=== PATIENT | male | born 1955 | race Caucasian/White ===

== ENCOUNTER 2018-02-06 11:11 | Emergency (ER) | payer OTHER, MEDICAID, SELFPAY ==
[2018-02-06] VITALS (9 sets, daily range): BP systolic 139–195; BP diastolic 58–80; PULSE 49–75; RESP 11–64; TEMP 36.5; O2SAT 99–100; BMI 25.2
--- NOTE | 2018-02-06 11:14 | ED.CHESTPAIN ---
HPI - Chest Pain General Chief Complaint: Chest Pain Stated Complaint: Chest Pain Time Seen by Provider: 02/06/18 11:12 Source: patient Mode of arrival: EMS Limitations: no limitations History of Present Illness HPI narrative: 62-year-old male with a history of coronary artery disease and history of 2 heart attacks last 1 being earlier this year is currently at a rehab facility in the local area secondary to also having CVA after the last DC. Patient with residual weakness of bilateral upper extremities. Patient states that last evening he had left-sided chest pain took a couple nitro which resolved the symptoms. He states that this morning he was walking out to smoke a cigarette when he had return of the pain. Took more nitro which improved his symptoms greatly. EMS was called. Denies any shortness of breath. Patient was given aspirin by paramedics prior to arrival. Related Data Home Medications Medication Instructions Recorded Confirmed Nicotrol Inhaler 4 mg INHALATION Q2H PRN MDD 16 02/06/18 02/06/18 cartridges acetaminophen 650 mg PO PRN PRN 02/06/18 02/06/18 ammonium lactate 1 applic TOPICAL DAILY 02/06/18 02/06/18 aspirin 81 mg PO DAILY 02/06/18 02/06/18 atorvastatin 40 mg PO DAILY 02/06/18 02/06/18 buspirone 10 mg PO BID 02/06/18 02/06/18 clopidogrel [Plavix] 75 mg PO DAILY 02/06/18 02/06/18 gabapentin 100 mg PO BID 02/06/18 02/06/18 lisinopril 5 mg PO DAILY 02/06/18 02/06/18 metoprolol succinate 25 mg PO DAILY 02/06/18 02/06/18 nitroglycerin [Nitrostat] 1 tab SUBLINGUAL PRN PRN 02/06/18 02/06/18 polyethylene glycol 3350 [Miralax] 17 g PO DAILY 02/06/18 02/06/18 ranitidine HCl 300 mg PO DAILY 02/06/18 02/06/18 sennosides [senna] 1 tab PO BID 02/06/18 02/06/18 sitagliptin 50 mg PO DAILY 02/06/18 02/06/18 trazodone 50 mg PO BEDTIME 02/06/18 02/06/18 Allergies Allergy/AdvReac Type Severity Reaction Status Date / Time No Known Drug Allergies Allergy Verified 02/06/18 11:33 Review of Systems Constitutional Denies chills, Denies fatigue and Denies frequent falls ENT Ears, Nose, Mouth, and Throat: Denies vertigo and Denies dizziness Cardiovascular Reports chest pain, Denies edema, Denies palpitations and Denies dyspnea Respiratory Denies cough and Denies dyspnea Gastrointestinal Gastrointestinal: Denies abdominal pain, Denies nausea and Denies vomiting Genitourinary Denies dysuria Musculoskeletal Denies myalgias and Denies arthralgias Integumentary/Breasts Denies lesions and Denies rash Neurologic Denies vertigo, Denies dizziness and Denies frequent falls Endocrine Denies fatigue and Denies palpitations Hematologic/Lymphatic Denies easy bleeding and Denies easy bruising [facility] Medical History Coronary artery disease (Acute) Diabetes (Acute) Hyperlipidemia (Acute) Hypertension (Acute) Surgical History No pertinent past surgical history (Acute) Social History Smoking Status: Current every day smoker Exam Initial Vital Signs Initial Vital Signs: Vital Signs Temperature 97.7 F 02/06/18 11:21 Pulse Rate 63 02/06/18 11:21 Respiratory Rate 15 02/06/18 11:21 Blood Pressure 156/62 H 02/06/18 11:21 Pulse Oximetry 100 02/06/18 11:21 Const General: cooperative, healthy appearing, comfortable, well developed, well groomed and No acute distress Orientation: alert, awake and oriented x3 HENMT Head: normal to inspection and normocephalic Resp Effort & Inspection: normal respiratory effort Auscultation: clear to auscultation bilaterally Cardio Rate: regular rate Rhythm: regular rhythm Pulses: radial pulses present GI Inspection: normal to inspection and non-distended Palpation: No firm and No tender Skin Lesions: no lesions Rashes: no rashes Neuro General: alert, awake and oriented x3 Extrem General: normal to inspection, capillary refill normal and No edema Psych Appearance: grossly normal and well kempt Course Orders Ordered: ED Orders 02/06/18 11:13 XR chest 1V Stat EKG-12 Lead Stat 02/06/18 11:39 Complete Blood Count AUTO DIFF Stat Comprehensive Metabolic Panel Stat Lipase Stat Troponin I Stat 02/06/18 14:45 Troponin I Stat Vital Signs - 8 hr 02/06/18 11:21 02/06/18 11:31 02/06/18 12:07 Temperature 97.7 F Pulse Rate 63 62 Respiratory Rate 15 15 14 Blood Pressure 156/62 H Blood Pressure [Left Arm] 139/58 L 174/61 H Pulse Oximetry 100 100 02/06/18 12:35 02/06/18 13:08 02/06/18 13:30 Temperature Pulse Rate 66 49 L 51 L Respiratory Rate 13 11 L Blood Pressure Blood Pressure [Left Arm] 180/66 H 181/71 H 179/61 H Pulse Oximetry 100 100 100 MDM - Chest Pain Lab Data Attestation: I reviewed the patient's lab results. Result diagrams: 02/06/18 11:39 02/06/18 11:39 Lab Results 02/06/18 02/06/18 02/06/18 Range/Units 11:39 11:39 14:45 WBC 6.5 (4.5-11.0) X10^3/uL RBC 4.75 (4.5-5.9) X10^6/uL Hgb 13.9 (13.5-17.5) g/dL Hct 40.4 L (41-53) % MCV 85.0 (80-100) fL MCH 29.3 (26-34) PG MCHC 34.4 (30-36) % RDW 14.1 (11.6-14.8) % Plt Count 154 (150-400) X10^3/uL Neut % (Auto) 67.9 (50-75) % Lymph % (Auto) 22.0 L (25-40) % [place] % (Auto) 6.3 (3-14) % Eos % (Auto) 3.4 (2-4) % Baso % (Auto) 0.4 (0-2) % Neut # (Auto) 4400 (8398-0432) /uL Sodium 142 (137-145) mmol/L Potassium 4.2 (3.4-5.1) mmol/L Chloride 102 (98-107) mmol/L Carbon Dioxide 33 H (22-32) mmol/L BUN 12 (9-20) mg/dL Creatinine 0.80 (0.66-1.25) mg/dL Estimated GFR > 60.0 (>60) mL/min BUN/Creatinine Ratio 15.0 (6-22) Glucose 219 H (80-110) mg/dL Calcium 8.7 (8.4-10.2) mg/dL Total Bilirubin 0.4 (0.2-1.3) mg/dL AST 11 L (17-59) IU/L ALT 23 (21-72) IU/L Alkaline Phosphatase 58 (38-126) U/L Troponin I < 0.012 < 0.012 (0.01-0.034) ng/mL Total Protein 6.1 L (6.3-8.2) g/dL Albumin 3.7 (3.5-5.0) g/dL Globulin 2.4 (1.7-4.1) g/dL Albumin/Globulin Ratio 1.5 (1.0-2.8) Lipase 124 (23-300) U/L Imaging Data Chest x-ray: Radiologist's impression: PROCEDURE: XR CHEST 1V INDICATIONS: chest pain TECHNIQUE: One view of the chest was acquired. COMPARISON: None. FINDINGS: Surgical changes and devices: None. Lungs and pleura: No pleural effusions or pneumothorax. Lungs are clear. Mediastinum: Mediastinal contours appear normal. Heart size is normal. Bones and chest wall: No suspicious bony lesions. Overlying soft tissues appear unremarkable. IMPRESSION: Normal for age, source of current symptoms is not seen. Dictated by: Jesse Joseph M.D. on 02/06/2018 at 11:56 Approved by: Jesse Joseph M.D. on 02/06/2018 at 11:5 ECG Data Attestation: I personally reviewed and interpreted this ECG as follows: Prior ECG tracings: not available for review Interpretation: sinus bradycardia ventricular rate of 56 normal axis Normal intervals Normal QRS Nonspecific ST T wave changes MDM Narrative Medical decision making narrative: patient with 2- troponins. Nonischemic EKG. Given the patient's significant cardiac history in his symptoms I did tell him that I was concerned about his chest pain that he was having and whether not this was ischemia / heart attack. recommend that the patient be transferred back up to [facility] where he had his last cardiac catheterization to be admitted evaluated by the recreation facility attendant. The patient states that he did not want to be transferred. He did state that he would stay here in the ER for repeat troponin which was unremarkable. Patient was alert oriented x3, clinically sober, in my opinion had capacity to make decisions. He did express understanding of my concerns with regard to his chest pain. He expressed understanding that the symptoms that he was having today could potentially be ischemia which could lead to further problems and also heart attack and also . The patient stated that he understood this and still would like to be discharged home and not be transferred. I once again offered the transfer however he declined. The patient was informed that he could return to the emergency department at any time for continued evaluation if he so choose. He expressed agreement with this. Discharge Plan Departure Patient Disposition: Home Clinical Impression: Chest pain Instructions: DI for Chest Pain Activity Restrictions/Additional Instructions: after our discussion today and after I expressed my concerns that the pain that you are having could potentially be coming from the heart you still opted to be discharged from the emergency department and not be transferred. You may return to the emergency department at any time if you change of mind. I encourage you to call your primary doctor and also your recreation facility attendant for a follow-up. Continue all of your medications as directed. Prescriptions: No Action atorvastatin 40 mg Tablet 40 mg PO DAILY RF: 0 sennosides [senna] 8.6 mg Tablet 1 tab PO BID RF: 0 acetaminophen 325 mg Tablet 650 mg PO PRN PRN (Reason: pain/fever) RF: 0 trazodone 50 mg Tablet 50 mg PO BEDTIME RF: 0 polyethylene glycol 3350 [Miralax] 17 gram Powder In Packet 17 g PO DAILY RF: 0 clopidogrel [Plavix] 75 mg Tablet 75 mg PO DAILY RF: 0 aspirin 81 mg Tablet,Delayed Release (Dr/Ec) 81 mg PO DAILY RF: 0 ranitidine HCl 150 mg Tablet 300 mg PO DAILY RF: 0 buspirone 10 mg Tablet 10 mg PO BID RF: 0 nitroglycerin [Nitrostat] 0.4 mg Tablet, Sublingual 1 tab Sublingual PRN PRN (Reason: Chest Pain) RF: 0 ammonium lactate 12 % Cream 1 applic TOPICAL DAILY RF: 0 gabapentin 100 mg Capsule 100 mg PO BID RF: 0 metoprolol succinate 25 mg Tablet Extended Release 24 Hr 25 mg PO DAILY RF: 0 lisinopril 2.5 mg Tablet 5 mg PO DAILY RF: 0 sitagliptin 50 mg Tablet 50 mg PO DAILY RF: 0 Nicotrol Inhaler 4 mg 4 mg Inhalation Q2H MDD 16 cartridges PRN (Reason: smoking cessation) RF: 0
--- NOTE | 2018-02-06 11:32 | PC.NURSE ---
Patient had a recent stroke this year around june or July. States he has right-sided deficits. [employer] on the right are slightly weaker than the left side. Pt states this is baseline. No arm drift. Speech is at baseline, per patient. He lives at [facility] and requires assistance with ambulation, transferring, etc due to the stroke deficits.
[2018-02-06 11:48] LABS: Add Manual Diff / Slide Review NO; Basophils Percent Auto 0.4 % (0-2); Eosinophils Percent Auto 3.4 % (2-4); Hematocrit 40.4 % (41-53); Hemoglobin 13.9 g/dL (13.5-17.5); Mean Corpuscular HGB Conc 34.4 % (30-36); Mean Corpuscular Hemoglobin 29.3 PG (26-34); Monocytes Percent Auto 6.3 % (3-14); Neutrophils Absolute Auto 4400 /uL (3000-5900); Neutrophils Percent Auto 67.9 % (50-75); Platelet Count 154 X10^3/uL (150-400); Red Blood Cell Count 4.75 X10^6/uL (4.5-5.9); Red Cell Distribution Width 14.1 % (11.6-14.8); White Blood Cell Count 6.5 X10^3/uL (4.5-11.0)
[2018-02-06 12:05] LABS: Alanine Aminotransferase 23 IU/L (21-72); Albumin 3.7 g/dL (3.5-5.0); Albumin Globulin Ratio 1.5 (1.0-2.8); Alkaline Phosphatase 58 U/L (38-126); Aspartate Aminotransferase 11 IU/L (17-59); Bilirubin Total 0.4 mg/dL (0.2-1.3); Blood Urea Nitrogen 12 mg/dL (9-20); Calcium 8.7 mg/dL (8.4-10.2); Carbon Dioxide 33 mmol/L (22-32); Chloride 102 mmol/L (98-107); Estimated Glomerular Filt Rate > 60.0 mL/min (>60); Globulin 2.4 g/dL (1.7-4.1); Glucose 219 mg/dL (80-110); HEMOLYSIS < 15 (0-50); Lipase 124 U/L (23-300); Potassium 4.2 mmol/L (3.4-5.1); Sodium 142 mmol/L (137-145); Total Protein 6.1 g/dL (6.3-8.2)
[2018-02-06 12:17] LABS: Troponin I < 0.012 ng/mL (0.01-0.034)
[2018-02-06 15:35] LABS: Troponin I < 0.012 ng/mL (0.01-0.034)
== END 2018-02-06 16:12 | disposition home or self-care (01) ==
PROVIDERS: Emergency Provider Emergency Medicine; PCP Internal Medicine
DX: R07.89 Other chest pain (principal)
CPT/HCPCS: 36415; 71045; 80053; 83690; 84484; 85025; 93005; 93010; 99283; 99285

== ENCOUNTER → 2018-02-16 07:16 | Outpatient (REF) | payer OTHER, MEDICAID, SELFPAY ==
[2018-02-16 07:47] LABS: BUN Creatinine Ratio 13.3 (6-22); Blood Urea Nitrogen 12 mg/dL (9-20); Calcium 8.8 mg/dL (8.4-10.2); Carbon Dioxide 35 mmol/L (22-32); Chloride 101 mmol/L (98-107); Estimated Glomerular Filt Rate > 60.0 mL/min (>60); Glucose 182 mg/dL (80-110); HEMOLYSIS < 15 (0-50); Potassium 4.5 mmol/L (3.4-5.1); Sodium 142 mmol/L (137-145)
== END ==
LOC: LAB 07:16
PROVIDERS: PCP Internal Medicine; Visit Provider Internal Medicine
DX: I10 Essential (primary) hypertension (principal)
CPT/HCPCS: 36415; 80048

== ENCOUNTER → 2018-03-30 08:20 | Outpatient (REF) | payer OTHER, MEDICAID, SELFPAY ==
[2018-03-30 09:11] LABS: Hemoglobin A1C% w Est Avg Glu 7.2 % (4.0-6.0)
[2018-03-30 09:35] LABS: BUN Creatinine Ratio 16.7 (6-22); Blood Urea Nitrogen 15 mg/dL (9-20); Calcium 8.9 mg/dL (8.4-10.2); Carbon Dioxide 31 mmol/L (22-32); Chloride 102 mmol/L (98-107); Estimated Glomerular Filt Rate > 60.0 mL/min (>60); Glucose 179 mg/dL (80-110); HEMOLYSIS < 15 (0-50); Potassium 4.5 mmol/L (3.4-5.1); Sodium 144 mmol/L (137-145)
== END ==
LOC: LAB 08:20
PROVIDERS: PCP Internal Medicine; Visit Provider Nurse Practitioner Family
DX: I10 Essential (primary) hypertension (principal); E11.9 Type 2 diabetes mellitus without complications
CPT/HCPCS: 36415; 80048; 83036

== ENCOUNTER → 2018-06-13 07:23 | Outpatient (REF) | payer OTHER, MEDICAID, SELFPAY ==
[2018-06-13 08:08] LABS: BUN Creatinine Ratio 14.4 (6-22); Blood Urea Nitrogen 13 mg/dL (9-20); Calcium 8.7 mg/dL (8.4-10.2); Carbon Dioxide 30 mmol/L (22-32); Chloride 100 mmol/L (98-107); Estimated Glomerular Filt Rate > 60.0 mL/min (>60); Glucose 170 mg/dL (80-110); HEMOLYSIS < 15 (0-50); Potassium 4.6 mmol/L (3.4-5.1); Sodium 138 mmol/L (137-145)
== END ==
LOC: LAB 07:23
PROVIDERS: PCP Internal Medicine; Visit Provider Internal Medicine
DX: I10 Essential (primary) hypertension (principal)
CPT/HCPCS: 36415; 80048

== ENCOUNTER → 2018-06-15 20:06 | Outpatient (REF) | payer OTHER, MEDICAID, SELFPAY ==
[2018-06-15 20:18] LABS: Add Manual Diff / Slide Review NO; Basophils Absolute Auto 0 /uL (0-100); Basophils Percent Auto 0.4 % (0-2); Eosinophils Absolute Auto 300 /uL (0-450); Hematocrit 43.2 % (41-53); Hemoglobin 14.5 g/dL (13.5-17.5); Lymphocytes Absolute Auto 2000 /uL (1100-4500); Lymphocytes Percent Auto 23.6 % (25-40); Mean Corpuscular HGB Conc 33.6 % (30-36); Mean Corpuscular Hemoglobin 28.7 PG (26-34); Mean Corpuscular Volume 85.3 fL (80-100); Monocytes Absolute Auto 600 /uL (0-900); Monocytes Percent Auto 7.5 % (3-14); Neutrophils Absolute Auto 5600 /uL (1500-7000); Neutrophils Percent Auto 65.5 % (50-75); Platelet Count 170 X10^3/uL (150-400); Red Blood Cell Count 5.07 X10^6/uL (4.5-5.9); Red Cell Distribution Width 13.8 % (11.6-14.8); White Blood Cell Count 8.5 X10^3/uL (4.5-11.0)
[2018-06-15 20:54] LABS: Thyroid Stimulating Hormone 1.42 uIU/mL (0.47-4.68)
== END ==
LOC: LAB 20:06
PROVIDERS: PCP Internal Medicine; Visit Provider Registered Nurse
DX: R53.83 Other fatigue (principal)
CPT/HCPCS: 84443; 85025

== ENCOUNTER → 2018-07-04 07:46 | Outpatient (REF) | payer OTHER, MEDICAID, SELFPAY ==
[2018-07-04 08:33] LABS: Add Manual Diff / Slide Review NO; Basophils Absolute Auto 0 /uL (0-100); Basophils Percent Auto 0.6 % (0-2); Eosinophils Absolute Auto 300 /uL (0-450); Eosinophils Percent Auto 3.7 % (2-4); Hematocrit 42.2 % (41-53); Hemoglobin 14.5 g/dL (13.5-17.5); Lymphocytes Absolute Auto 1900 /uL (1100-4500); Lymphocytes Percent Auto 28.5 % (25-40); Mean Corpuscular HGB Conc 34.4 % (30-36); Mean Corpuscular Hemoglobin 29.1 PG (26-34); Mean Corpuscular Volume 84.5 fL (80-100); Monocytes Absolute Auto 600 /uL (0-900); Monocytes Percent Auto 8.9 % (3-14); Neutrophils Absolute Auto 3900 /uL (1500-7000); Neutrophils Percent Auto 58.3 % (50-75); Platelet Count 182 X10^3/uL (150-400); Red Blood Cell Count 4.99 X10^6/uL (4.5-5.9); Red Cell Distribution Width 13.8 % (11.6-14.8); White Blood Cell Count 6.7 X10^3/uL (4.5-11.0)
[2018-07-04 08:45] LABS: Hemoglobin A1C% w Est Avg Glu 7.6 % (4.0-6.0)
[2018-07-04 09:13] LABS: Blood Urea Nitrogen 16 mg/dL (9-20); Calcium 8.8 mg/dL (8.4-10.2); Carbon Dioxide 30 mmol/L (22-32); Chloride 102 mmol/L (98-107); Estimated Glomerular Filt Rate > 60.0 mL/min (>60); Glucose 175 mg/dL (80-110); HEMOLYSIS < 15 (0-50); Potassium 4.7 mmol/L (3.4-5.1); Sodium 140 mmol/L (137-145)
== END ==
LOC: LAB 07:46
PROVIDERS: PCP Internal Medicine; Visit Provider Internal Medicine
DX: I10 Essential (primary) hypertension (principal)
CPT/HCPCS: 36415; 80048; 83036; 85025

== ENCOUNTER → 2018-11-14 07:11 | Outpatient (ROUT) | payer OTHER, MEDICAID, SELFPAY ==
[2018-11-14 08:32] LABS: BUN Creatinine Ratio 17.8 (6-22); Blood Urea Nitrogen 16 mg/dL (9-20); Calcium 9.1 mg/dL (8.4-10.2); Carbon Dioxide 30 mmol/L (22-32); Chloride 102 mmol/L (98-107); Estimated Glomerular Filt Rate > 60.0 mL/min (>60); Glucose 174 mg/dL (80-110); HEMOLYSIS < 15 (0-50); Potassium 5.3 mmol/L (3.4-5.1); Sodium 141 mmol/L (137-145)
== END ==
PROVIDERS: PCP Internal Medicine; Visit Provider Internal Medicine
DX: E11.9 Type 2 diabetes mellitus without complications (principal); M79.606 Pain in leg, unspecified
CPT/HCPCS: 36415; 80048; 83036

== ENCOUNTER → 2018-11-17 14:28 | Outpatient (ROUT) | payer OTHER, MEDICAID, SELFPAY ==
[2018-11-17 14:50] LABS: HEMOLYSIS < 15 (0-50); Potassium 4.3 mmol/L (3.4-5.1)
== END ==
PROVIDERS: PCP Internal Medicine; Visit Provider Internal Medicine
DX: E87.5 Hyperkalemia (principal)
CPT/HCPCS: 84132

== ENCOUNTER → 2019-02-13 07:38 | Outpatient (ROUT) | payer OTHER, MEDICAID, SELFPAY ==
[2019-02-13 08:39] LABS: Add Manual Diff / Slide Review NO; Basophils Absolute Auto 0 /uL (0-100); Basophils Percent Auto 0.4 % (0-2); Eosinophils Absolute Auto 300 /uL (0-450); Eosinophils Percent Auto 3.7 % (2-4); Hematocrit 43.6 % (41-53); Hemoglobin 14.9 g/dL (13.5-17.5); Lymphocytes Absolute Auto 1100 /uL (1100-4500); Lymphocytes Percent Auto 14.1 % (25-40); Mean Corpuscular HGB Conc 34.2 % (30-36); Mean Corpuscular Hemoglobin 30.5 PG (26-34); Mean Corpuscular Volume 89.3 fL (80-100); Monocytes Absolute Auto 600 /uL (0-900); Monocytes Percent Auto 8.4 % (3-14); Neutrophils Absolute Auto 5600 /uL (1500-7000); Neutrophils Percent Auto 73.4 % (50-75); Platelet Count 184 X10^3/uL (150-400); Red Blood Cell Count 4.88 X10^6/uL (4.5-5.9); Red Cell Distribution Width 13.7 % (11.6-14.8); White Blood Cell Count 7.6 X10^3/uL (4.5-11.0)
[2019-02-13 08:58] LABS: BUN Creatinine Ratio 14.4 (6-22); Blood Urea Nitrogen 13 mg/dL (9-20); Calcium 9.4 mg/dL (8.4-10.2); Carbon Dioxide 30 mmol/L (22-32); Chloride 100 mmol/L (98-107); Estimated Glomerular Filt Rate > 60.0 mL/min (>60); Glucose 189 mg/dL (80-110); HEMOLYSIS < 15 (0-50); Potassium 4.7 mmol/L (3.4-5.1); Sodium 137 mmol/L (137-145)
== END ==
PROVIDERS: PCP Internal Medicine; Visit Provider Nurse Practitioner Family
DX: E11.9 Type 2 diabetes mellitus without complications (principal)
CPT/HCPCS: 36415; 80048; 83036; 85025

== ENCOUNTER → 2019-04-29 21:26 | Outpatient (ROUT) | payer OTHER, MEDICAID, SELFPAY ==
[2019-04-29 22:01] LABS: Influenza B - CEPHEID Flu B POSITIVE (NEGATIVE)
[2019-04-29 22:11] LABS: Influenza A - CEPHEID Flu A NEGATIVE (NEGATIVE)
== END ==
PROVIDERS: PCP Internal Medicine; Visit Provider Nurse Practitioner Family
DX: R05 Cough (principal); R50.9 Fever, unspecified
CPT/HCPCS: 87502

== ENCOUNTER → 2019-05-01 10:08 | Outpatient (ROUT) | payer OTHER, MEDICAID, SELFPAY ==
[2019-05-01 10:29] LABS: Add Manual Diff / Slide Review NO; Basophils Absolute Auto 0 /uL (0-100); Basophils Percent Auto 0.8 % (0-2); Eosinophils Absolute Auto 0 /uL (0-450); Eosinophils Percent Auto 0.7 % (2-4); Hematocrit 38.2 % (41-53); Hemoglobin 13.1 g/dL (13.5-17.5); Lymphocytes Absolute Auto 700 /uL (1100-4500); Lymphocytes Percent Auto 21.6 % (25-40); Mean Corpuscular HGB Conc 34.4 % (30-36); Mean Corpuscular Volume 87.3 fL (80-100); Monocytes Absolute Auto 500 /uL (0-900); Monocytes Percent Auto 14.6 % (3-14); Neutrophils Absolute Auto 2000 /uL (1500-7000); Neutrophils Percent Auto 62.3 % (50-75); Platelet Count 117 X10^3/uL (150-400); Red Blood Cell Count 4.38 X10^6/uL (4.5-5.9); Red Cell Distribution Width 13.5 % (11.6-14.8); White Blood Cell Count 3.2 X10^3/uL (4.5-11.0)
[2019-05-01 10:47] LABS: Alanine Aminotransferase 21 IU/L (<50); Albumin 3.8 g/dL (3.5-5.0); Albumin Globulin Ratio 1.5 (1.0-2.8); Alkaline Phosphatase 64 U/L (38-126); Aspartate Aminotransferase 39 IU/L (17-59); BUN Creatinine Ratio 14.2 (6-22); Bilirubin Total 0.4 mg/dL (0.2-1.3); Blood Urea Nitrogen 17 mg/dL (9-20); Calcium 8.5 mg/dL (8.4-10.2); Carbon Dioxide 29 mmol/L (22-32); Chloride 100 mmol/L (98-107); Estimated Glomerular Filt Rate > 60.0 mL/min (>60); Globulin 2.6 g/dL (1.7-4.1); Glucose 134 mg/dL (80-110); HEMOLYSIS < 15 (0-50); Potassium 4.8 mmol/L (3.4-5.1); Sodium 137 mmol/L (137-145); Total Protein 6.4 g/dL (6.3-8.2)
== END ==
PROVIDERS: PCP Internal Medicine; Visit Provider Nurse Practitioner Family
DX: R11.2 Nausea with vomiting, unspecified (principal)
CPT/HCPCS: 36415; 80053; 85025

== ENCOUNTER → 2019-08-28 07:39 | Outpatient (ROUT) | payer OTHER, MEDICAID, SELFPAY ==
[2019-08-28 07:51] LABS: Add Manual Diff / Slide Review NO; Basophils Absolute Auto 0 /uL (0-100); Basophils Percent Auto 0.5 % (0-2); Eosinophils Absolute Auto 200 /uL (0-450); Eosinophils Percent Auto 4.4 % (2-4); Hematocrit 39.8 % (41-53); Hemoglobin 13.6 g/dL (13.5-17.5); Lymphocytes Absolute Auto 1000 /uL (1100-4500); Mean Corpuscular HGB Conc 34.1 % (30-36); Mean Corpuscular Hemoglobin 30.1 PG (26-34); Mean Corpuscular Volume 88.3 fL (80-100); Monocytes Absolute Auto 500 /uL (0-900); Monocytes Percent Auto 8.7 % (3-14); Neutrophils Absolute Auto 3700 /uL (1500-7000); Neutrophils Percent Auto 67.4 % (50-75); Platelet Count 163 X10^3/uL (150-400); Red Cell Distribution Width 14.1 % (11.6-14.8); White Blood Cell Count 5.5 X10^3/uL (4.5-11.0)
[2019-08-28 07:59] LABS: Hemoglobin A1C% w Est Avg Glu 7.7 % (4.0-6.0)
[2019-08-28 08:07] LABS: BUN Creatinine Ratio 15.9 (6-22); Blood Urea Nitrogen 17 mg/dL (9-20); Calcium 8.6 mg/dL (8.4-10.2); Carbon Dioxide 27 mmol/L (22-32); Chloride 106 mmol/L (98-107); Estimated Glomerular Filt Rate > 60.0 mL/min (>60); Glucose 164 mg/dL (80-110); HEMOLYSIS 20 (0-50); Potassium 4.6 mmol/L (3.4-5.1); Sodium 139 mmol/L (137-145)
== END ==
PROVIDERS: PCP Internal Medicine; Visit Provider Nurse Practitioner Family
DX: E11.9 Type 2 diabetes mellitus without complications (principal)
CPT/HCPCS: 36415; 80048; 83036; 85025

== ENCOUNTER → 2019-12-28 10:14 | Outpatient (CLI) | payer OTHER, MEDICAID, SELFPAY ==
--- NOTE | 2019-12-28 | DI.US.S_ITS ---
PROCEDURE: US PERIPH VENOUS LOW EXTREM LT INDICATIONS: EDEMA TECHNIQUE: Real-time imaging, as well as color and pulse Doppler interrogation, were performed of the lower extremity deep veins from the inguinal ligament to the popliteal fossa. COMPARISON: None. FINDINGS: The common femoral, femoral and popliteal veins are normally compressible, and free of intraluminal thrombus. Color and pulse Doppler demonstrate normal phasic intraluminal flow. There is normal augmentation response to distal compression maneuver. IMPRESSION: Negative for deep venous thrombosis. Of this Dictated by: Enoch Armando M.D. on 12/28/2019 at 9:57 Approved by: Enoch Armando M.D. on 12/28/2019 at 9:58
== END ==
PROVIDERS: PCP Internal Medicine; Referring Provider Registered Nurse; Visit Provider Registered Nurse
DX: R60.0 Localized edema (principal)
CPT/HCPCS: 93971

== ENCOUNTER → 2020-02-07 14:26 | Outpatient (CLI) | payer OTHER, MEDICAID, SELFPAY ==
--- NOTE | 2020-02-07 | DI.RAD.S_ITS ---
PROCEDURE: XR CHEST 2V INDICATIONS: COUGH TECHNIQUE: 2 views of the chest were acquired. COMPARISON: [facility], CR, XR CHEST 1V, 02/06/2018, 11:37. FINDINGS: Surgical changes and devices: None. Lungs and pleura: Lungs are clear. No pleural effusions or pneumothorax. Mediastinum: Mediastinal contours are normal. Heart size is normal. Bones and chest wall: No suspicious bony abnormalities. Soft tissues appear unremarkable. IMPRESSION: No acute cardiopulmonary process. Dictated by: Rajiv Seaman M.D. on 02/07/2020 at 16:01 Approved by: Rajiv Seaman M.D. on 02/07/2020 at 16:02
== END ==
PROVIDERS: PCP Internal Medicine; Referring Provider Nurse Practitioner Family; Visit Provider Nurse Practitioner Family
DX: Z20.828 Contact with and (suspected) exposure to other viral communicable diseases (principal); R05 Cough
CPT/HCPCS: 71046; 87635

== ENCOUNTER → 2020-02-07 16:01 | Outpatient (ROUT) | payer OTHER, MEDICAID, SELFPAY ==
[2020-02-09 21:33] LABS: COVID19 Sendout Not Detected (Not Detect)
== END ==
PROVIDERS: PCP Internal Medicine; Visit Provider Nurse Practitioner Family
DX: Z03.818 Encounter for observation for suspected exposure to other biological agents ruled out (principal)
CPT/HCPCS: 87635

== ENCOUNTER → 2020-02-26 07:25 | Outpatient (ROUT) | payer OTHER, MEDICAID, SELFPAY ==
[2020-02-26 09:31] LABS: Hemoglobin A1C% w Est Avg Glu 8.2 % (4.0-6.0)
[2020-02-26 09:47] LABS: BUN Creatinine Ratio 16.7 (6-22); Blood Urea Nitrogen 18 mg/dL (9-20); Calcium 8.6 mg/dL (8.4-10.2); Carbon Dioxide 29 mmol/L (22-32); Chloride 103 mmol/L (98-107); Estimated Glomerular Filt Rate > 60.0 mL/min (>60); Glucose 194 mg/dL (80-110); Potassium 4.8 mmol/L (3.4-5.1); Sodium 137 mmol/L (137-145)
[2020-02-26 10:00] LABS: HEMOLYSIS 56 (0-50)
== END ==
PROVIDERS: PCP Internal Medicine; Visit Provider Internal Medicine
DX: E11.9 Type 2 diabetes mellitus without complications (principal); Z79.899 Other long term (current) drug therapy
CPT/HCPCS: 36415; 80048; 83036

== ENCOUNTER → 2020-07-01 08:42 | Outpatient (ROUT) | payer OTHER, MEDICAID, SELFPAY ==
[2020-07-01 09:01] LABS: Add Manual Diff / Slide Review NO; Basophils Absolute Auto 0 /uL (0-100); Basophils Percent Auto 0.5 % (0-2); Eosinophils Absolute Auto 400 /uL (0-450); Eosinophils Percent Auto 6.2 % (2-4); Hemoglobin 13.8 g/dL (13.5-17.5); Lymphocytes Absolute Auto 1400 /uL (1100-4500); Lymphocytes Percent Auto 23.9 % (25-40); Mean Corpuscular HGB Conc 32.9 % (30-36); Mean Corpuscular Hemoglobin 28.2 PG (26-34); Mean Corpuscular Volume 85.5 fL (80-100); Monocytes Absolute Auto 500 /uL (0-900); Monocytes Percent Auto 8.2 % (3-14); Neutrophils Absolute Auto 3500 /uL (1500-7000); Neutrophils Percent Auto 61.2 % (50-75); Platelet Count 176 X10^3/uL (150-400); Red Blood Cell Count 4.91 X10^6/uL (4.5-5.9); Red Cell Distribution Width 14.7 % (11.6-14.8); White Blood Cell Count 5.7 X10^3/uL (4.5-11.0)
[2020-07-01 09:14] LABS: BUN Creatinine Ratio 12.6 (6-22); Blood Urea Nitrogen 14 mg/dL (9-20); Calcium 9.1 mg/dL (8.4-10.2); Carbon Dioxide 30 mmol/L (22-32); Chloride 104 mmol/L (98-107); Estimated Glomerular Filt Rate > 60.0 mL/min (>60); Glucose 171 mg/dL (80-110); HEMOLYSIS < 15 (0-50); Potassium 4.9 mmol/L (3.4-5.1); Sodium 137 mmol/L (137-145)
[2020-07-01 09:16] LABS: Hemoglobin A1C% w Est Avg Glu 9.4 % (4.0-6.0)
== END ==
PROVIDERS: PCP Internal Medicine; Visit Provider Nurse Practitioner Family
DX: E11.9 Type 2 diabetes mellitus without complications (principal)
CPT/HCPCS: 36415; 80048; 83036; 85025

== ENCOUNTER → 2020-07-15 07:57 | Outpatient (ROUT) | payer OTHER, MEDICAID, SELFPAY ==
[2020-07-17 16:32] LABS: Fecal Immunochemical Test Negative (Negative)
== END ==
PROVIDERS: PCP Internal Medicine; Visit Provider Nurse Practitioner Family
DX: Z12.11 Encounter for screening for malignant neoplasm of colon (principal)
CPT/HCPCS: 82274

== ENCOUNTER → 2020-07-27 16:39 | Outpatient (ROUT) | payer OTHER, MEDICAID, SELFPAY | PROVIDERS: PCP Internal Medicine; Visit Provider Internal Medicine | DX: T14.8XXA Other injury of unspecified body region, initial encounter (principal) | CPT/HCPCS: 87070; 87075; 87205 ==

== ENCOUNTER → 2020-07-29 10:57 | Outpatient (ROUT) | payer OTHER, MEDICAID, SELFPAY ==
[2020-07-29 11:41] LABS: Add Manual Diff / Slide Review NO; Basophils Absolute Auto 0 /uL (0-100); Basophils Percent Auto 0.6 % (0-2); Eosinophils Absolute Auto 300 /uL (0-450); Hematocrit 39.9 % (41-53); Hemoglobin 13.3 g/dL (13.5-17.5); Lymphocytes Absolute Auto 1200 /uL (1100-4500); Mean Corpuscular HGB Conc 33.3 % (30-36); Mean Corpuscular Hemoglobin 28.5 PG (26-34); Mean Corpuscular Volume 85.7 fL (80-100); Monocytes Absolute Auto 600 /uL (0-900); Monocytes Percent Auto 9.8 % (3-14); Neutrophils Absolute Auto 4200 /uL (1500-7000); Neutrophils Percent Auto 65.6 % (50-75); Platelet Count 188 X10^3/uL (150-400); Red Blood Cell Count 4.65 X10^6/uL (4.5-5.9); Red Cell Distribution Width 14.8 % (11.6-14.8); White Blood Cell Count 6.4 X10^3/uL (4.5-11.0)
[2020-07-29 12:17] LABS: Blood Urea Nitrogen 21 mg/dL (9-20); Calcium 8.6 mg/dL (8.4-10.2); Carbon Dioxide 23 mmol/L (22-32); Chloride 103 mmol/L (98-107); Glucose 141 mg/dL (80-110); HEMOLYSIS < 15 (0-50); Sodium 135 mmol/L (137-145)
[2020-07-29 12:32] LABS: BUN Creatinine Ratio 11.9 (6-22); Estimated Glomerular Filt Rate 39.2 mL/min (>60)
[2020-07-29 12:55] LABS: Potassium 7.1 mmol/L (3.4-5.1)
[2020-07-29 14:43] LABS: Hemoglobin A1C% w Est Avg Glu 9.3 % (4.0-6.0)
== END ==
PROVIDERS: PCP Internal Medicine; Visit Provider Internal Medicine
DX: I10 Essential (primary) hypertension (principal); E11.9 Type 2 diabetes mellitus without complications
CPT/HCPCS: 36415; 80048; 83036; 85025

== ENCOUNTER 2020-07-29 13:31 | Observation (INO) | payer OTHER, MEDICAID, SELFPAY ==
[2020-07-29] VITALS (15 sets, daily range): BP systolic 115–166; BP diastolic 58–76; PULSE 58–78; RESP 3–21; TEMP 36.6–36.8; O2SAT 93–98; BMI 33.2; BMI 34.9
--- NOTE | 2020-07-29 13:48 | ED.RECABL ---
HPI - Recheck/Abnormal Lab/Rx General Chief Complaint: Recheck/Abnormal Lab/Rx Stated Complaint: abnormal labs Time Seen by Provider: 07/29/20 13:48 Source: patient, EMS and other (records from rehab) Mode of arrival: EMS Limitations: no limitations History of Present Illness HPI narrative: This is a 65-year-old male comes emergency department with complaint of elevated potassium an outpatient labs. Patient states he has had cramping in the lower extremities little bit his upper extremities as well. He denies other symptoms currently. He states he has been afebrile, he has not felt lightheaded or like he is going to pass out. Denies any chest pain or pressure. He has had some nausea but no active vomiting. He denies any abdominal pain. No back or flank pain. He has not had any issues with bowel movements recently. He denies any issues with urination. He states he was in rehab secondary to alcohol use as well as an infection in his foot. He states he has been on antibiotics looks like he has been on Bactrim recently and is continuing to take this. Patient's outpatient lab value was 7.1. Related Data Home Medications Medication Instructions Recorded Confirmed Nicotrol Inhaler 4 mg INHALATION Q2H PRN MDD 16 02/06/18 02/06/18 cartridges acetaminophen 650 mg PO PRN PRN 02/06/18 02/06/18 ammonium lactate 1 applic TOPICAL DAILY 02/06/18 02/06/18 aspirin 81 mg PO DAILY 02/06/18 02/06/18 atorvastatin 40 mg PO DAILY 02/06/18 02/06/18 buspirone 10 mg PO BID 02/06/18 02/06/18 clopidogrel [Plavix] 75 mg PO DAILY 02/06/18 02/06/18 gabapentin 100 mg PO BID 02/06/18 02/06/18 lisinopril 5 mg PO DAILY 02/06/18 02/06/18 metoprolol succinate 25 mg PO DAILY 02/06/18 02/06/18 nitroglycerin [Nitrostat] 1 tab SUBLINGUAL PRN PRN 02/06/18 02/06/18 polyethylene glycol 3350 [Miralax] 17 g PO DAILY 02/06/18 02/06/18 ranitidine HCl 300 mg PO DAILY 02/06/18 02/06/18 sennosides [senna] 1 tab PO BID 02/06/18 02/06/18 sitagliptin 50 mg PO DAILY 02/06/18 02/06/18 trazodone 50 mg PO BEDTIME 02/06/18 02/06/18 Allergies Allergy/AdvReac Type Severity Reaction Status Date / Time No Known Drug Allergies Allergy Verified 02/06/18 11:33 Review of Systems Review of Systems ROS Unobtainable: All systems reviewed & are unremarkable except as noted in HPI and below Patient History Medical History Coronary artery disease Diabetes Hyperlipidemia Hypertension Surgical History No pertinent past surgical history Social History Smoking Status: Current every day smoker alcohol intake: current Smoking Status: Current every day smoker alcohol intake frequency: 0-2 drinks per day Substance Use Type: does not use Exam Narrative Exam Narrative: GENERAL: Alert and oriented male in mild distress. HEENT: Head normocephalic, atraumatic, EOMI, pupils reactive, face symmetric, moist mucous membranes NECK: Supple, full range of motion CARDIOVASCULAR: Regular rate and rhythm without murmurs, rubs or gallops. RESPIRATORY: Breath sounds equal bilaterally, no wheezes rales or rhonchi. ABDOMEN: Soft, nontender. Normoactive bowel sounds all 4 quadrants. No guarding or rebound, rigidity, no mass : No CVA tenderness EXTREMITIES: Normal range of motion, no clubbing or edema. Neurovascularly intact. Patient does have some hyperpigmented changes with a line around his foot with no cellulitis extending beyond. The area is not warm air. There is a small wound it does appear to be healing. NEUROLOGICAL: Cranial nerves II through XII grossly intact. Moving all extremities SKIN: Warm, dry, no petechiae, no rashes or lesions. Initial Vital Signs Initial Vital Signs: Vital Signs Temperature 98.3 F 07/29/20 13:43 Pulse Rate 59 L 07/29/20 13:43 Respiratory Rate 16 07/29/20 13:43 Blood Pressure 115/59 L 07/29/20 13:43 Pulse Oximetry 95 07/29/20 13:43 Course Orders Ordered: ED Orders 07/29/20 13:40 EKG-12 Lead Stat 07/29/20 14:06 Complete Blood Count AUTO DIFF Stat Comprehensive Metabolic Panel Stat Prothrombin Time INR Stat 07/29/20 14:55 US renal complete Stat 07/29/20 15:00 COVID19 - ADMIT ([employer] swab/PCR) Stat Urinalysis and Microscopic Stat Acetaminophen (Acetaminophen 325 Mg Tablet) 650 mg PO Q6HR PRN PRN Reason: Fever/Mild Pain (1-3) Dextrose (Dextrose 50 % In Water 25 Gm/50 Ml Syringe) 25 gm IV PRN PRN; Protocol PRN Reason: Hypoglycemia Doxycycline Hyclate (Doxycycline Hyclate 100 Mg Tablet) 100 mg PO BID [place] Heparin Sodium (Porcine) (Heparin 5,000 Unit/Ml Vial) 5,000 unit SUBCUT BID [place] Sodium Chloride (Normal Saline 0.9%) 1,000 mls @ 100 mls/hr IV CONT [place] Insulin Aspart (Insulin Aspart 100 Unit/Ml Insuln Pen) 0 unit SUBCUT ACHS [place]; Protocol Discontinued Medications Albuterol (Albuterol 2.5 Mg/3 Ml Neb (Adult)) 2.5 mg INH NOW ONE Stop: 07/29/20 14:56 Last Admin: 07/29/20 16:43 Dose: 2.5 mg Documented by: VIDAL Dextrose (Dextrose 50 % In Water 25 Gm/50 Ml Syringe) 25 gm IV NOW ONE Stop: 07/29/20 14:56 Last Admin: 07/29/20 15:19 Dose: 25 gm Documented by: BHAVANI Sodium Chloride (Normal Saline 0.9%) 1,000 mls @ 1,000 mls/hr IV BOLUS ONE Stop: 07/29/20 14:47 Last Infusion: 07/29/20 15:25 Dose: 0 mls/hr Documented by: Admin: 07/29/20 14:22 Dose: 1,000 mls/hr Documented by: BHAVANI Calcium Gluconate 4.65 meq/ (Sodium Chloride) 60 mls @ 180 mls/hr IV NOW ONE Stop: 07/29/20 14:07 Last Infusion: 07/29/20 14:44 Dose: 0 mls/hr Documented by: Admin: 07/29/20 14:22 Dose: 180 mls/hr Documented by: BHAVANI Insulin Human Regular (Insulin Regular 100 Unit/Ml 3 Ml Vial) 5 unit SUBCUT NOW ONE Stop: 07/29/20 14:56 Last Admin: 07/29/20 15:18 Dose: 5 unit Documented by: BHAVANI Cosigned by: DARA Nicotine (Nicotine 7 Mg Patch) 7 mg TOP NOW ONE Stop: 07/29/20 18:25 Last Admin: 07/29/20 18:50 Dose: 7 mg Documented by: JACOB Sodium Polystyrene Sulfonate (Sodium Polystyrene Sulfon/Sorb 15 Gm/60 Ml Cup) 15 gm PO NOW ONE Stop: 07/29/20 14:56 Last Admin: 07/29/20 15:20 Dose: 15 gm Documented by: BHAVANI Reevaluation(s) Time: 16:57 Consultations Consultation #1: Dr. Lu accepts for observation for hyperkalemia and acute renal injury. Time: 16:57 Vital Signs Vital signs: Vital Signs - 8 hr 07/29/20 13:43 07/29/20 14:29 07/29/20 14:56 Temperature 98.3 F Pulse Rate 59 L 58 L 60 Respiratory Rate 16 16 Blood Pressure 115/59 L 115/76 Pulse Oximetry 95 93 98 07/29/20 14:58 07/29/20 15:00 07/29/20 15:23 Temperature Pulse Rate 60 58 L 61 Respiratory Rate 6 L 3 L 18 Blood Pressure 166/67 H 141/70 H Pulse Oximetry 98 98 95 07/29/20 15:30 07/29/20 16:00 07/29/20 16:01 Temperature Pulse Rate 61 61 61 Respiratory Rate 20 21 15 Blood Pressure 153/72 H 127/58 L Pulse Oximetry 96 96 97 07/29/20 16:30 07/29/20 16:31 07/29/20 16:46 Temperature Pulse Rate 61 62 62 Respiratory Rate 12 10 L 16 Blood Pressure 153/73 H Pulse Oximetry 97 97 98 MDM - Recheck/Abnormal Lab/Rx Lab Data Attestation: I reviewed the patient's lab results. Result diagrams: 07/29/20 14:06 07/29/20 14:06 Labs: Lab Results 07/29/20 07/29/20 07/29/20 Range/Units 14:06 14:06 14:06 WBC 6.8 (4.5-11.0) X10^3/uL RBC 4.55 (4.5-5.9) X10^6/uL Hgb 13.1 L (13.5-17.5) g/dL Hct 39.0 L (41-53) % MCV 85.8 (80-100) fL MCH 28.7 (26-34) PG MCHC 33.4 (30-36) % RDW 14.9 H (11.6-14.8) % Plt Count 189 (150-400) X10^3/uL Neut % (Auto) 66.5 (50-75) % Lymph % (Auto) 20.1 L (25-40) % [place] % (Auto) 8.2 (3-14) % Eos % (Auto) 4.3 H (2-4) % Baso % (Auto) 0.9 (0-2) % Neut # (Auto) 4500 (8966-7670) /uL Lymph # (Auto) 1400 (6328-3917) /uL [place] # (Auto) 600 (0-900) /uL Eos # (Auto) 300 (0-450) /uL Baso # (Auto) 100 (0-100) /uL PT 10.8 (10.1-12.7) SECONDS INR 0.9 (0.9-1.3) Sodium 134 L (137-145) mmol/L Potassium 6.0 H (3.4-5.1) mmol/L Chloride 106 (98-107) mmol/L Carbon Dioxide 20 L (22-32) mmol/L BUN 25 H (9-20) mg/dL Creatinine 1.76 H (0.66-1.25) mg/dL Estimated GFR 39.2 L (>60) mL/min BUN/Creatinine Ratio 14.2 (6-22) Glucose 218 H (80-110) mg/dL Calcium 8.5 (8.4-10.2) mg/dL Total Bilirubin 0.1 L (0.2-1.3) mg/dL AST 32 (17-59) IU/L ALT 17 (<50) IU/L Alkaline Phosphatase 74 (38-126) U/L Total Protein 6.6 (6.3-8.2) g/dL Albumin 3.8 (3.5-5.0) g/dL Globulin 2.8 (1.7-4.1) g/dL Albumin/Globulin Ratio 1.4 (1.0-2.8) Urine Color Urine Appearance Urine pH (4.5-8.0) Ur Specific [place] (1.000-1.035) Urine Protein (Negative) Urine Glucose (UA) (Negative) g/dL Urine Ketones (NEGATIVE) Urine Occult Blood (Negative) Urine Nitrate (Negative) Urine Bilirubin (NEGATIVE) Urine Urobilinogen (0.2) E.U./dL Ur Leukocyte Esterase (NEGATIVE) Urine RBC (0-5/HPF) Urine WBC (0-5/HPF) Amorphous Sediment Urine Bacteria (None) Ur Culture Indicated? SARS-CoV-2 (PCR) (Negative) 07/29/20 07/29/20 Range/Units 15:00 15:00 WBC (4.5-11.0) X10^3/uL RBC (4.5-5.9) X10^6/uL Hgb (13.5-17.5) g/dL Hct (41-53) % MCV (80-100) fL MCH (26-34) PG MCHC (30-36) % RDW (11.6-14.8) % Plt Count (150-400) X10^3/uL Neut % (Auto) (50-75) % Lymph % (Auto) (25-40) % [place] % (Auto) (3-14) % Eos % (Auto) (2-4) % Baso % (Auto) (0-2) % Neut # (Auto) (6367-5563) /uL Lymph # (Auto) (2711-5763) /uL [place] # (Auto) (0-900) /uL Eos # (Auto) (0-450) /uL Baso # (Auto) (0-100) /uL PT (10.1-12.7) SECONDS INR (0.9-1.3) Sodium (137-145) mmol/L Potassium (3.4-5.1) mmol/L Chloride (98-107) mmol/L Carbon Dioxide (22-32) mmol/L BUN (9-20) mg/dL Creatinine (0.66-1.25) mg/dL Estimated GFR (>60) mL/min BUN/Creatinine Ratio (6-22) Glucose (80-110) mg/dL Calcium (8.4-10.2) mg/dL Total Bilirubin (0.2-1.3) mg/dL AST (17-59) IU/L ALT (<50) IU/L Alkaline Phosphatase (38-126) U/L Total Protein (6.3-8.2) g/dL Albumin (3.5-5.0) g/dL Globulin (1.7-4.1) g/dL Albumin/Globulin Ratio (1.0-2.8) Urine Color Yellow Urine Appearance Clear Urine pH 5.0 (4.5-8.0) Ur Specific [place] 1.015 (1.000-1.035) Urine Protein Negative (Negative) Urine Glucose (UA) Trace H (Negative) g/dL Urine Ketones Negative (NEGATIVE) Urine Occult Blood Negative (Negative) Urine Nitrate Negative (Negative) Urine Bilirubin Negative (NEGATIVE) Urine Urobilinogen 0.2 (0.2) E.U./dL Ur Leukocyte Esterase Negative (NEGATIVE) Urine RBC None seen (0-5/HPF) Urine WBC 0-1/hpf (0-5/HPF) Amorphous Sediment 2+ Urine Bacteria None seen (None) Ur Culture Indicated? Cult not indicated SARS-CoV-2 (PCR) Negative (Negative) Imaging Data renal US: Radiologist's Impression: Keaton Reynoso 65 M 1955 [place], [place] [address]Ultrasound ReportSigned Patient: Keaton Reynoso R#: [id number]: [id number]:[id number]/Sex: 65 / MDate of Service: 07/29/20Loc: EDAccession Number: [id number] Procedure: US renal complete Ordering Provider: Nicole Bang D.O. PROCEDURE: US RENAL COMPLETE INDICATIONS: ACUTE RENAL FAILURE. HYPERKALEMIA TECHNIQUE: Real-time scanning was performed of the kidneys and bladder, with image documentation. COMPARISON: None. FINDINGS: Kidneys: Kidneys are normal in size. Right kidney measures 12.6 cm long; left kidney measures 12.7 cm long. Right renal cortical thickness is 1.3 cm; left renal cortical thickness is 1.2 cm. Renal cortical echotexture is normal. No nephrolithiasis. Trace right pelviectasis or hydronephrosis. No suspicious solid mass lesions. Bladder: Pre-void bladder volume is 391 mL. Post-void residual is 119 mL. Pre-void images demonstrate no intraluminal masses or stones. On pre-void images, no ureteral jets are noted with color Doppler interrogation. (Of note, ureteral jets may not be detectable in up to 25% of cases due to insufficient differences in specific gravity between ureteral and bladder urine). Miscellaneous: No free pelvic fluid. IMPRESSION: 1. Postvoid residual bladder volume is 119 mL. 2. Minimal right hydronephrosis. No left-sided hydronephrosis. No nephrolithiasis. Dictated by: George Santos M.D. on 07/29/2020 at 16:28 Approved by: George Santos M.D. on 07/29/2020 at 16:31 ECG Data Attestation: I personally reviewed and interpreted this ECG as follows: Prior ECG tracings: available for review Interpretation: Sinus bradycardia rate of 59 P are 188 QRS 888 and QTC of 425. Patient does appear to have somewhat peaked T-waves. No clear sinus idle changes. EKG actually looks fairly similar 02/06/2018 with changes in aVL appreciated on the an EKG as well MDM Narrative Medical decision making narrative: This is a 65-year-old male sent for elevated potassium and muscle cramps particularly in his lower extremities. Patient has recently been on antibiotics including Bactrim for cellulitis in his left foot. Suspect this may be an inciting incident and he has acute renal insufficiency with a creatinine 1.6 up from 1.1. Repeat potassium is 6 down from 7.1 on his outpatient but renal function appears similar with a sodium of 134. Patient has a stable anemia. Renal US shows postvoid residual 119 mild right hydro but no nephrolithiasis or significant changes. Reviewed with the hospitalist who accepts for observation. Discharge Plan Departure Patient Disposition: Admitted as Observation Clinical Impression: Acute hyperkalemia, Acute kidney injury, Cellulitis of foot Admit Date/Time: 07/29/20 16:57 Admit Provider: Agusto Lu
[2020-07-29 14:13] LABS: Add Manual Diff / Slide Review NO; Basophils Absolute Auto 100 /uL (0-100); Basophils Percent Auto 0.9 % (0-2); Eosinophils Absolute Auto 300 /uL (0-450); Eosinophils Percent Auto 4.3 % (2-4); Hemoglobin 13.1 g/dL (13.5-17.5); Lymphocytes Absolute Auto 1400 /uL (1100-4500); Lymphocytes Percent Auto 20.1 % (25-40); Mean Corpuscular HGB Conc 33.4 % (30-36); Mean Corpuscular Hemoglobin 28.7 PG (26-34); Mean Corpuscular Volume 85.8 fL (80-100); Monocytes Absolute Auto 600 /uL (0-900); Monocytes Percent Auto 8.2 % (3-14); Neutrophils Absolute Auto 4500 /uL (1500-7000); Neutrophils Percent Auto 66.5 % (50-75); Platelet Count 189 X10^3/uL (150-400); Red Blood Cell Count 4.55 X10^6/uL (4.5-5.9); Red Cell Distribution Width 14.9 % (11.6-14.8); White Blood Cell Count 6.8 X10^3/uL (4.5-11.0)
[2020-07-29 14:21] LABS: INR 0.9 (0.9-1.3); Prothrombin Time 10.8 SECONDS (10.1-12.7)
[2020-07-29] MEDS: CALCIUM GLUCONATE 4.65 MEQ in SODIUM CHLORIDE 0.9% 50 ML 180 ML IV (14:22)
[2020-07-29] MEDS: SODIUM CHLORIDE 0.9% 1,000 ML 1000 ML IV (14:22)
[2020-07-29 14:42] LABS: Alanine Aminotransferase 17 IU/L (<50); Albumin 3.8 g/dL (3.5-5.0); Albumin Globulin Ratio 1.4 (1.0-2.8); Alkaline Phosphatase 74 U/L (38-126); Aspartate Aminotransferase 32 IU/L (17-59); BUN Creatinine Ratio 14.2 (6-22); Bilirubin Total 0.1 mg/dL (0.2-1.3); Blood Urea Nitrogen 25 mg/dL (9-20); Calcium 8.5 mg/dL (8.4-10.2); Carbon Dioxide 20 mmol/L (22-32); Chloride 106 mmol/L (98-107); Estimated Glomerular Filt Rate 39.2 mL/min (>60); Globulin 2.8 g/dL (1.7-4.1); Glucose 218 mg/dL (80-110); HEMOLYSIS 27 (0-50); Sodium 134 mmol/L (137-145); Total Protein 6.6 g/dL (6.3-8.2)
--- NOTE | 2020-07-29 14:55 | DI.US.S_ITS ---
PROCEDURE: US RENAL COMPLETE INDICATIONS: ACUTE RENAL FAILURE. HYPERKALEMIA TECHNIQUE: Real-time scanning was performed of the kidneys and bladder, with image documentation. COMPARISON: None. FINDINGS: Kidneys: Kidneys are normal in size. Right kidney measures 12.6 cm long; left kidney measures 12.7 cm long. Right renal cortical thickness is 1.3 cm; left renal cortical thickness is 1.2 cm. Renal cortical echotexture is normal. No nephrolithiasis. Trace right pelviectasis or hydronephrosis. No suspicious solid mass lesions. Bladder: Pre-void bladder volume is 391 mL. Post-void residual is 119 mL. Pre-void images demonstrate no intraluminal masses or stones. On pre-void images, no ureteral jets are noted with color Doppler interrogation. (Of note, ureteral jets may not be detectable in up to 25% of cases due to insufficient differences in specific gravity between ureteral and bladder urine). Miscellaneous: No free pelvic fluid. IMPRESSION: 1. Postvoid residual bladder volume is 119 mL. 2. Minimal right hydronephrosis. No left-sided hydronephrosis. No nephrolithiasis. Dictated by: George Santos M.D. on 07/29/2020 at 16:28 Approved by: George Santos M.D. on 07/29/2020 at 16:31
[2020-07-29 15:12] LABS: Bacteria Urine None Seen; RBC Urine None Seen (0-5/HPF)
[2020-07-29] MEDS: INSULIN REGULAR 100 UNIT/ML 3 ML VIAL SUBCUT (15:18)
[2020-07-29] MEDS: DEXTROSE 50 % IN WATER 25 GM/50 ML SYRINGE IV (15:19)
[2020-07-29] MEDS: SODIUM POLYSTYRENE SULFON/SORB 15 GM/60 ML CUP PO (15:20)
[2020-07-29 15:22] LABS: Appearance Urine UA CLEAR; Bilirubin Urine UA NEGATIVE (NEGATIVE); Color Urine UA YELLOW; Glucose Urine UA TRACE g/dL (Negative); Ketones Urine UA NEGATIVE (NEGATIVE); Leukocyte Esterase Urine UA NEGATIVE (NEGATIVE); Nitrite Urine UA NEGATIVE (Negative); Occult Blood Urine UA NEGATIVE (Negative); Protein Urine UA NEGATIVE (Negative); Specific Gravity Urine UA 1.015 (1.000-1.035); Urobilinogen Urine UA 0.2 E.U./dL (0.2)
[2020-07-29 15:33] LABS: Amorphous Sediment Urine 2+; Culture Indicated Urine Cult Not Indicated; WBC Urine 0-1/HPF (0-5/HPF)
[2020-07-29 15:58] LABS: COVID19 - ADMIT (NP swab/PCR) Negative (Negative)
[2020-07-29] MEDS: ALBUTEROL 2.5 MG/3 ML NEB (ADULT) INH (16:43)
[2020-07-29] MEDS: NICOTINE 7 MG PATCH TOP (18:50)
--- NOTE | 2020-07-29 19:48 | P.HP_ITS ---
History of Present Illness History of Present Illness Date Patient Seen: 07/29/20 Time Patient Seen: 16:49 Date of Onset of Symptoms: 07/29/20 Chief complaint: abnormal labs Narrative: 65M PMH HTN, CAD s/p CABG, CVA, DM who comes in with elevated potassium. Patient has recently had an episode of vomiting, body aches approximately one week ago that has been resolved for a couple days ago. He also was recently in rehab due to alcohol use and foot infection. He has been on antibiotics with bactrim for left foot cellulitis. He has no pain or fevers currently and his cellulitis appears to be improving. He is unclear how long he needs to be on antibiotics. He had outpatient labs with a noted potassium of 7.1. He denies any symptoms currently with no diarrhea, lightheadedness, fever, abdominal pain. He is also on gabapentin, lisinopril, sitagliptin as medications. In the ER he was noted to have normal vital signs. Repeat potassium was 6.0. Creatinine was elevated to 1.76. Urinalysis was negative. Kidney ultrasound showed mild right hydronephrosis. He received kayexelate, albuterol, insulin, and dextrose. EKG showed questionable peaked twaves. He was admitted for further treatment and evaluation. Patient History Medical History Coronary artery disease Diabetes Hyperlipidemia Hypertension Surgical History No pertinent past surgical history Family & Social History Social History: Prior Living Arrangements Assisted Living Safety & Behavioral: Feels Safe in Current Yes Environment Been Physically Hurt or No Threatened By a Person Suicidal Ideation Description None Suicide Plan Description No Plan Tobacco & Substance use: Smoking Status Current every day smoker Smoking packs per day 1 alcohol intake current alcohol intake frequency 0-2 drinks per day Substance Use Type does not use Meds Home Medications and Allergies Home Medications Medication Instructions Recorded Confirmed Type Nicotrol Inhaler 4 mg INHALATION Q2H PRN MDD 16 02/06/18 02/06/18 History cartridges acetaminophen 650 mg PO PRN PRN 02/06/18 02/06/18 History ammonium lactate 1 applic TOPICAL DAILY 02/06/18 02/06/18 History aspirin 81 mg PO DAILY 02/06/18 02/06/18 History atorvastatin 40 mg PO DAILY 02/06/18 02/06/18 History buspirone 10 mg PO BID 02/06/18 02/06/18 History clopidogrel [Plavix] 75 mg PO DAILY 02/06/18 02/06/18 History gabapentin 100 mg PO BID 02/06/18 02/06/18 History lisinopril 5 mg PO DAILY 02/06/18 02/06/18 History metoprolol succinate 25 mg PO DAILY 02/06/18 02/06/18 History nitroglycerin [Nitrostat] 1 tab SUBLINGUAL PRN PRN 02/06/18 02/06/18 History polyethylene glycol 3350 [Miralax] 17 g PO DAILY 02/06/18 02/06/18 History ranitidine HCl 300 mg PO DAILY 02/06/18 02/06/18 History sennosides [senna] 1 tab PO BID 02/06/18 02/06/18 History sitagliptin 50 mg PO DAILY 02/06/18 02/06/18 History trazodone 50 mg PO BEDTIME 02/06/18 02/06/18 History Allergies Allergy/AdvReac Type Severity Reaction Status Date / Time No Known Drug Allergies Allergy Verified 02/06/18 11:33 Review of Systems Review of Systems Narrative: 14 systems reviewed and negative aside from what is noted in HPI Exam Vital Signs (past 8 hours): - 07/29/20 13:43 07/29/20 14:29 07/29/20 14:56 Temperature 98.3 F Pulse Rate 59 L 58 L 60 Respiratory Rate 16 16 Blood Pressure 115/59 L 115/76 Pulse Oximetry 95 93 98 07/29/20 14:58 07/29/20 15:00 07/29/20 15:23 Temperature Pulse Rate 60 58 L 61 Respiratory Rate 6 L 3 L 18 Blood Pressure 166/67 H 141/70 H Pulse Oximetry 98 98 95 07/29/20 15:30 07/29/20 16:00 07/29/20 16:01 Temperature Pulse Rate 61 61 61 Respiratory Rate 20 21 15 Blood Pressure 153/72 H 127/58 L Pulse Oximetry 96 96 97 07/29/20 16:30 07/29/20 16:31 07/29/20 16:46 Temperature Pulse Rate 61 62 62 Respiratory Rate 12 10 L 16 Blood Pressure 153/73 H Pulse Oximetry 97 97 98 07/29/20 17:00 Temperature Pulse Rate 66 Respiratory Rate 20 Blood Pressure 159/74 H Pulse Oximetry 97 Oxygen Delivery Method Room Air Oxygen Flow Rate 0 Narrative Exam Narrative: GEN: NAD HEENT: PERRL, moist mucous membranes NECK: trachea midline, no masses CV: RRR no murmurs PULM: clear bilaterally, no wheezes, rhonchi, rales ABD: soft, nontender, no distended, normal bowel sounds EXT: warm and well perfused with no edema SKIN: small ~1cm on dorsal left foot with mild erythema surrounding NEURO: word finding difficulty, moving all extremities grossly PSYCH: pleasant mood Objective Labs Result Diagrams: 07/29/20 14:06 07/29/20 14:06 Labs: Laboratory Results - last 24 hr 07/29/20 07/29/20 07/29/20 14:06 14:06 14:06 WBC 6.8 RBC 4.55 Hgb 13.1 L Hct 39.0 L MCV 85.8 MCH 28.7 MCHC 33.4 RDW 14.9 H Plt Count 189 Neut % (Auto) 66.5 Lymph % (Auto) 20.1 L [place] % (Auto) 8.2 Eos % (Auto) 4.3 H Baso % (Auto) 0.9 Neut # (Auto) 4500 Lymph # (Auto) 1400 [place] # (Auto) 600 Eos # (Auto) 300 Baso # (Auto) 100 PT 10.8 INR 0.9 Sodium 134 L Potassium 6.0 H Chloride 106 Carbon Dioxide 20 L BUN 25 H Creatinine 1.76 H Estimated GFR 39.2 L BUN/Creatinine Ratio 14.2 Glucose 218 H Calcium 8.5 Total Bilirubin 0.1 L AST 32 ALT 17 Alkaline Phosphatase 74 Total Protein 6.6 Albumin 3.8 Globulin 2.8 Albumin/Globulin Ratio 1.4 Urine Color Urine Appearance Urine pH Ur Specific [place] Urine Protein Urine Glucose (UA) Urine Ketones Urine Occult Blood Urine Nitrate Urine Bilirubin Urine Urobilinogen Ur Leukocyte Esterase Urine RBC Urine WBC Amorphous Sediment Urine Bacteria Ur Culture Indicated? SARS-CoV-2 (PCR) 07/29/20 07/29/20 15:00 15:00 WBC RBC Hgb Hct MCV MCH MCHC RDW Plt Count Neut % (Auto) Lymph % (Auto) [place] % (Auto) Eos % (Auto) Baso % (Auto) Neut # (Auto) Lymph # (Auto) [place] # (Auto) Eos # (Auto) Baso # (Auto) PT INR Sodium Potassium Chloride Carbon Dioxide BUN Creatinine Estimated GFR BUN/Creatinine Ratio Glucose Calcium Total Bilirubin AST ALT Alkaline Phosphatase Total Protein Albumin Globulin Albumin/Globulin Ratio Urine Color Yellow Urine Appearance Clear Urine pH 5.0 Ur Specific [place] 1.015 Urine Protein Negative Urine Glucose (UA) Trace H Urine Ketones Negative Urine Occult Blood Negative Urine Nitrate Negative Urine Bilirubin Negative Urine Urobilinogen 0.2 Ur Leukocyte Esterase Negative Urine RBC None seen Urine WBC 0-1/hpf Amorphous Sediment 2+ Urine Bacteria None seen Ur Culture Indicated? Cult not indicated SARS-CoV-2 (PCR) Negative Assessment & Plan Assessment & Plan narrative: Mr. Reynoso is a 65M with PMH of DM, CAD s/p CABG, CVA, HL, HTN and recent cellulitis who is admitted with MELVI and hyperkalemia. 1. Acute hyperkalemia - likely secondary to acute kidney injury. May be in the setting of recent vomiting, with recent infection and bactrim as a medication can all cause this elevated potassium. He is also lisinopril and gabapentin and sitagliptin which may contributing to renal function. Has received albuterol, insulin, dextrose, and kayexalate. Continue with IVF for possible hypovolemia. Will follow up with another BMP this PM. 2. Acute kidney injury - creatinine of 1.76, elevated from 1.11. Likely as above from hypovolemia and med effect. Will continue on IVF and hold renal toxic medications. Renal ultrasound shows only mild R hydronephrosis. 3. DM - with elevated blood sugars. Will order insulin sliding scale for coverage 4. CAD s/p CABG - continue with aspirin and statin at home dose 5. s/p CVA - with word finding difficulty, continue aspirin and statin at home dose 6. EtOH abuse - will order for CIWA protocol, patient drinks only 24 oz beer daily, so low risk for withdrawal at this point 7. Nicotine dependence - active smoker, order for nicotine patch, and encourage smoking cessation Code Status: Full code, proxy Karie, sister COVID-19 COVID-19 status: Negative Result date/Date tested (Pos, Neg/Pending): 07/29/20 Time Spent With Patient Time with patient: 15-24 minutes Quality MIPS - Admit I confirm the patient?s Advance Care Plan is present, Code status is documented, Surrogate decision maker is in patient?s record [If Yes, STOP here]: Yes
[2020-07-29] MEDS: HEPARIN 5,000 UNIT/ML VIAL 5000 UNIT SUBCUT (20:48)
[2020-07-29] MEDS: DOXYCYCLINE HYCLATE 100 MG TABLET PO (20:48)
[2020-07-29] MEDS: SODIUM CHLORIDE 0.9% 1,000 ML 100 ML IV (20:54)
[2020-07-29] MEDS: INSULIN ASPART 100 UNIT/ML INSULN PEN SUBCUT (20:56)
--- NOTE | 2020-07-29 23:19 | PC.NURSE ---
A&OX4. slurred speech and R.arm weakness at baseline from hx cva. cms+. [id number] to the bathroom. oriented pt to the room. call light in reach. bed alarm active.
[2020-07-30] VITALS: BP 121/71; PULSE 75; RESP 18; TEMP 36.4; O2SAT 97
--- NOTE | 2020-07-30 00:41 | PC.NURSE ---
patient is alert and oriented. Has some slurred speech and word finding difficulty related to history of CVA. Breath sounds CTA with RA sat of 97%. HRR w/telemetry reading of SR w/1st degree AVB. Denies any further muscle cramping. Denies nausea. BT present and abdomen is soft. Reports chronic urinary frequency but denies dysuria or urgency; using urinal. Able to turn himself in bed. Has right UE weakness due to CVA history and reports weakness in bilateral LE and requires walker and 1 assist when out of bed. Allevyn dressing to left elbow is CDI. Bandaid dressing to below left knee is CDI. Noted to have multiple scattered abrasions on left lower leg. 1 cm skin ulcer on dorsal left foot with surrounding erythema within markings. Does complain of 6/10 sharp pain with movement of left foot but declines offer of pain medication. Has chronic bilateral LE neuropathy from mid calf to toe. Wearing bilateral calf SCD's. Fall risk score is high as patient reports having fallen in past 3 months; bed alarm is activated. CIWA score is 0.
[2020-07-30 01:24] VITALS: BMI 34.9
[2020-07-30 04:00] VITALS: BP 146/64; PULSE 67; RESP 18; TEMP 36.6; O2SAT 99
[2020-07-30 06:17] LABS: Add Manual Diff / Slide Review NO; Basophils Absolute Auto 0 /uL (0-100); Basophils Percent Auto 0.6 % (0-2); Eosinophils Absolute Auto 400 /uL (0-450); Eosinophils Percent Auto 6.5 % (2-4); Hematocrit 39.8 % (41-53); Lymphocytes Absolute Auto 1300 /uL (1100-4500); Lymphocytes Percent Auto 21.4 % (25-40); Mean Corpuscular HGB Conc 32.6 % (30-36); Mean Corpuscular Hemoglobin 27.9 PG (26-34); Mean Corpuscular Volume 85.7 fL (80-100); Monocytes Absolute Auto 500 /uL (0-900); Monocytes Percent Auto 8.3 % (3-14); Neutrophils Absolute Auto 3700 /uL (1500-7000); Neutrophils Percent Auto 63.2 % (50-75); Platelet Count 168 X10^3/uL (150-400); Red Blood Cell Count 4.64 X10^6/uL (4.5-5.9); Red Cell Distribution Width 14.8 % (11.6-14.8); White Blood Cell Count 5.9 X10^3/uL (4.5-11.0)
[2020-07-30 06:24] LABS: BUN Creatinine Ratio 13.1 (6-22); Blood Urea Nitrogen 18 mg/dL (9-20); Calcium 8.8 mg/dL (8.4-10.2); Carbon Dioxide 25 mmol/L (22-32); Chloride 109 mmol/L (98-107); Estimated Glomerular Filt Rate 52.3 mL/min (>60); Glucose 169 mg/dL (80-110); HEMOLYSIS < 15 (0-50); Sodium 139 mmol/L (137-145)
[2020-07-30 06:27] LABS: Potassium 5.7 mmol/L (3.4-5.1)
[2020-07-30] MEDS: SODIUM CHLORIDE 0.9% 1,000 ML 100 ML IV (07:17)
[2020-07-30 08:00] VITALS: BP 140/67; PULSE 65; RESP 17; TEMP 36.5; O2SAT 99
[2020-07-30] MEDS: INSULIN ASPART 100 UNIT/ML INSULN PEN SUBCUT ×2 (08:29→12:04)
[2020-07-30 08:36] VITALS: BP 140/67
[2020-07-30] MEDS: CLOPIDOGREL 75 MG TABLET PO (08:36)
[2020-07-30] MEDS: ASPIRIN EC 81 MG TABLET PO (08:36)
[2020-07-30] MEDS: ATORVASTATIN 20 MG TABLET 40 MG PO (08:36)
[2020-07-30] MEDS: METOPROLOL ER 25 MG TABLET PO (08:36)
[2020-07-30] MEDS: HEPARIN 5,000 UNIT/ML VIAL 5000 UNIT SUBCUT (08:36)
[2020-07-30] MEDS: DOXYCYCLINE HYCLATE 100 MG TABLET PO (08:37)
[2020-07-30 11:41] LABS: Blood Urea Nitrogen 17 mg/dL (9-20); Calcium 8.8 mg/dL (8.4-10.2); Carbon Dioxide 25 mmol/L (22-32); Chloride 106 mmol/L (98-107); Estimated Glomerular Filt Rate > 60.0 mL/min (>60); Glucose 192 mg/dL (80-110); HEMOLYSIS < 15 (0-50); Sodium 138 mmol/L (137-145)
[2020-07-30 11:44] LABS: Potassium 5.5 mmol/L (3.4-5.1)
--- NOTE | 2020-07-30 12:55 | CM.DANOTE ---
Addendum entered by KACY Duffy 07/30/20 14:21: ADD: Confirmation from [facility] at [place] that they can accept pt back without bedside assessment needed and can transport around 1400. RN and [facility] [employer] aware and pt outside of room in wheelchair waiting and aware. signed med rec and script for new med in packet. BF Original Note: Patient is a 65 year old male who was admitted on 07/29/20 for Hypercalemia and cellulitis at [facility]. Pt has [employer] and [employer] for insurance and his PCP is Cleo Rene. EMR was reviewed. Per MD, pt with cellulitis and oral abx at baseline and near the end of his course and hx of CVA and admitted with hyperkalemia and if noon labs are stable then he will be medically stable for d/c back to [facility]. SW met bedside with pt and explained role and pt confirms he lives at [facility] and is hopeful and agreeable with d/c back and would like to get back sooner rather than later. Per RN, pt has already pulled out his own IV access and gotten dressed and ambulated independently. SW called [facility] at [place] and updated on pt status and stable for d/c now that labs returned normal and faxed clinicals to review and [facility] will determine if pt is still in the 24 hr window to d/c back without need for bedside assessment. Plan: SW to follow for return call from [facility] for confirmed time of transport back to their facility and SW to fax signed med rec and d/c summary to [place] when available. KACY Duffy Discharge Planning/Care Management Advanced directive, confirm from FAMILY Start: 07/29/20 18:47 Freq: Q24H Status: Active Protocol: Document 07/29/20 18:47 HCW (Rec: 07/29/20 22:03 HCW [id number]) Advance Directive, confirm on record Time 22:03 Person contacted patient Copy received Yes CM Discharge Assessment Start: 07/30/20 10:50 Freq: Status: Active Protocol: Document 07/30/20 10:50 BF (Rec: 07/30/20 12:54 BF [id number]) Discharge Planning Assessment Assigned Printing Supplies Sales Representative KACY Red Advance Directives? Yes History Provided By Patient,Medical Record Has Patient been admitted in last 30 No days? Prior Living Arrangements Assisted Living Household Members none Type of transporation used prior to Relies on Others admit Facility Name Admitted From: [facility] Willing to Return to Facility? Yes Independent with ADL's No Is patient alert and oriented? Yes Needs Assistance With Meal Prep,Managing Medications ,Home Chores / Shopping Caregiver for Another No DME Already Rented / Owned Wheelchair Barriers to Discharge No Discharge Plan Assisted Living Facility Transportation Arrangement [facility] to provide transport home Referrals Initiated None needed Whiteboard Updated in Patient Room with Yes name and ext. # of Printing Supplies Sales Representative Review Status In Process Please Provide Date Initial DC 07/30/20 Assessment Was Performed Next Review Type Continued Stay Review
--- NOTE | 2020-07-30 12:56 | PC.NURSE ---
Pt is dressed and ready for discharge back to [place]. He removed his own IV and telemetry and dressed himself. Reviewed discharge instructions with Pt, stroke education, abx, activity, diet, and advised Pt to drink plenty of fluids to prevent constipation or dehydration and help to decrease potassium level. K+ level is 5.5 and Pt is aware that he will need a bmp checked in 1 week. [facility] to pick Pt up to transport back to [facility]. Pt had no further questions.
--- NOTE | 2020-07-30 14:22 | PC.NURSE ---
1407 Pt out via w/c by [facility] personnel with all belongings.
--- NOTE | 2020-07-30 17:57 | PM.DS.1 ---
History of Present Illness History of Present Illness Chief complaint: abnormal labs Narrative: 65M PMH HTN, CAD s/p CABG, CVA, DM who comes in with elevated potassium. Patient has recently had an episode of vomiting, body aches approximately one week ago that has been resolved for a couple days ago. He also was recently in rehab due to alcohol use and foot infection. He has been on antibiotics with bactrim for left foot cellulitis. He has no pain or fevers currently and his cellulitis appears to be improving. He is unclear how long he needs to be on antibiotics. He had outpatient labs with a noted potassium of 7.1. He denies any symptoms currently with no diarrhea, lightheadedness, fever, abdominal pain. He is also on gabapentin, lisinopril, sitagliptin as medications. In the ER he was noted to have normal vital signs. Repeat potassium was 6.0. Creatinine was elevated to 1.76. Urinalysis was negative. Kidney ultrasound showed mild right hydronephrosis. He received kayexelate, albuterol, insulin, and dextrose. EKG showed questionable peaked twaves. He was admitted for further treatment and evaluation. Discharge Providers Provider Date of admission: 07/29/20 16:57 Discharge Date: 07/30/20 Primary care physician: Cleo Rene MD Discharge provider: Agusto Lu MD Summary Hospital Course Discharge Diagnosis: 1. Acute hyperkalemia 2. Acute kidney injury 3. Type 2 DM 4. CAD s/p CABG 5. s/p CVA 6. EtOH abuse 7. Nicotine dependece 8. Cellulitis Hospital Course: Mr. Reynoso was admitted after outpatient labs noted a potassium of 7.1. He presented to the ER and he was noted to have a potassium of 6.0, creatinine 1.76. His etiology is multifactorial including recent vomiting, cellulitis with treatment with bactrim. He was initially given albuterol, insulin, dextrose, and kayexelate in the ER. His antibiotics were switched to doxycycline. And his bactrim was discontinued. He had his lisinopril, metoprolol held on discharge as they can cause hyperkalemia and MELVI. On discharge his potassium was improved to 5.5 and creatinine 1.21. The rest of his medical issues remained stable in the hospital. He should follow up as an outpatient for another BMP within the week, continue on low potassium diet, and if stable then consider restarting his medications. He was given three days of doxycycline to complete his cellulitis treatment for which he thought he had nearly had one week of antibiotics. Discharge time 35 minutes Time Spent with Patient Time spent: Greater than 30 minutes Exam Vital Signs (past 8 hours): Oxygen Delivery Method Room Air Oxygen Flow Rate 0 Narrative Exam Narrative: GEN: NAD HEENT: PERRL, moist mucous membranes NECK: trachea midline, no masses CV: RRR no murmurs PULM: clear bilaterally, no wheezes, rhonchi, rales ABD: soft, nontender, no distended, normal bowel sounds EXT: warm and well perfused with no edema SKIN: small ~1cm on dorsal left foot with mild erythema surrounding NEURO: word finding difficulty, moving all extremities grossly PSYCH: pleasant mood Objective Labs Result Diagrams: 07/30/20 05:55 07/30/20 11:10 Labs: Laboratory Results - last 24 hr 07/30/20 07/30/20 07/30/20 05:55 05:55 11:10 WBC 5.9 RBC 4.64 Hgb 13.0 L Hct 39.8 L MCV 85.7 MCH 27.9 MCHC 32.6 RDW 14.8 Plt Count 168 Neut % (Auto) 63.2 Lymph % (Auto) 21.4 L [place] % (Auto) 8.3 Eos % (Auto) 6.5 H Baso % (Auto) 0.6 Neut # (Auto) 3700 Lymph # (Auto) 1300 [place] # (Auto) 500 Eos # (Auto) 400 Baso # (Auto) 0 Sodium 139 138 Potassium 5.7 H 5.5 H Chloride 109 H 106 Carbon Dioxide 25 25 BUN 18 17 Creatinine 1.37 H 1.21 Estimated GFR 52.3 L > 60.0 BUN/Creatinine Ratio 13.1 14.0 Glucose 169 H 192 H Calcium 8.8 8.8 PFSH Medical History Coronary artery disease Diabetes Hyperlipidemia Hypertension Surgical History No pertinent past surgical history Social History household members: none Smoking Status: Current every day smoker alcohol intake: current Discharge Plan Discharge Plan Patient Disposition: Assisted Living Transfer to: [facility] Provider Discharge Comment: Mr. Reynoso was admitted with high potassium and and acute kidney injury. He had vomiting the week prior, he had been given bactrim for a recent skin infection. He was also on lisinopril, metoprolol, gabapentin which may cause elevated creatinine. These medications were held and he was given fluids. He was switched to doxycycline. His discharge potassium was improved to 5.5 and discharge creatinine improved to 1.21. He should have a repeat BMP within one week. Continue to drink plenty of fluids. Eat a low potassium diet. He can be considered on restarting his lisinopril, metoprolol, and gabapentin if his creatinine and potassium remain stable. Discharge orders & Medications Discharge Orders: Discharge (Order); Ordered 07/30/20 Ordered By: Agusto Lu Prescriptions: New doxycycline hyclate 100 mg Tablet 100 mg PO BID 3 Days Qty: 6 RF: 0 Continued atorvastatin 40 mg Tablet 40 mg PO DAILY RF: 0 sennosides [senna] 8.6 mg Tablet 1 tab PO BID RF: 0 acetaminophen 325 mg Tablet 650 mg PO PRN PRN (Reason: pain/fever) RF: 0 trazodone 50 mg Tablet 50 mg PO BEDTIME RF: 0 clopidogrel [Plavix] 75 mg Tablet 75 mg PO DAILY RF: 0 aspirin 81 mg Tablet,Delayed Release (Dr/Ec) 81 mg PO DAILY RF: 0 buspirone 10 mg Tablet 10 mg PO BID RF: 0 nitroglycerin [Nitrostat] 0.4 mg Tablet, Sublingual 1 tab Sublingual PRN PRN (Reason: Chest Pain) RF: 0 Discontinued gabapentin 100 mg Capsule 100 mg PO BID RF: 0 metoprolol succinate 25 mg Tablet Extended Release 24 Hr 25 mg PO DAILY RF: 0 lisinopril 2.5 mg Tablet 5 mg PO DAILY RF: 0 Follow up/Referrals: Cleo Rene MD [Primary Care Provider] - Diet/Activity/Treatments Diet: Diet as Tolerated Diet comment: low potassium diet Visit Report/Discharge Packet Instructions: Acute Kidney Injury, DI for Hyperkalemia, Doxycycline Discharge Data Primary Care Provider: Cleo Rene
== END 2020-07-30 14:07 | DRG 425 ==
LOC: ED 16:56 → AC 07-30 07:44
PROVIDERS: Admitting Provider Internal Medicine; Emergency Provider Emergency Medicine; PCP Internal Medicine; Referring Provider Emergency Medicine; Visit Provider Internal Medicine
DX: E87.5 Hyperkalemia (principal); N17.9 Acute kidney failure, unspecified; L03.116 Cellulitis of left lower limb; I10 Essential (primary) hypertension; I25.10 Atherosclerotic heart disease of native coronary artery without angina pectoris; Z95.1 Presence of aortocoronary bypass graft; I69.322 Dysarthria following cerebral infarction; I69.398 Other sequelae of cerebral infarction; R47.81 Slurred speech; E11.9 Type 2 diabetes mellitus without complications; E78.5 Hyperlipidemia, unspecified; F17.210 Nicotine dependence, cigarettes, uncomplicated; F10.10 Alcohol abuse, uncomplicated; Z20.822 Contact with and (suspected) exposure to COVID-19
CPT/HCPCS: 36415; 76770; 80048; 80053; 81001; 82962; 83036; 85025; 85610; 87635; 93005; 94640; 96361; 96365; 96372; 96375; 99284; 99285; 99406; C9803; G0378; J0610; J1644; J7613

== ENCOUNTER → 2020-08-01 20:12 | Outpatient (ROUT) | payer OTHER, MEDICAID, SELFPAY ==
[2020-07-30 01:24] VITALS: BMI 34.9
[2020-08-01 20:36] LABS: BUN Creatinine Ratio 13.3 (6-22); Blood Urea Nitrogen 18 mg/dL (9-20); Calcium 9.8 mg/dL (8.4-10.2); Carbon Dioxide 23 mmol/L (22-32); Chloride 105 mmol/L (98-107); Estimated Glomerular Filt Rate 53.2 mL/min (>60); Glucose 210 mg/dL (80-110); HEMOLYSIS < 15 (0-50); Potassium 5.1 mmol/L (3.4-5.1); Sodium 139 mmol/L (137-145)
== END ==
PROVIDERS: PCP Internal Medicine; Visit Provider Registered Nurse
DX: E87.5 Hyperkalemia (principal)
CPT/HCPCS: 80048

== ENCOUNTER → 2020-08-13 17:05 | Outpatient (ROUT) | payer OTHER, MEDICAID, SELFPAY ==
[2020-07-30 01:24] VITALS: BMI 34.9
[2020-08-13 17:16] LABS: Add Manual Diff / Slide Review NO; Basophils Absolute Auto 0 /uL (0-100); Basophils Percent Auto 0.5 % (0-2); Eosinophils Absolute Auto 300 /uL (0-450); Eosinophils Percent Auto 3.1 % (2-4); Hematocrit 38.1 % (41-53); Lymphocytes Absolute Auto 1800 /uL (1100-4500); Lymphocytes Percent Auto 19.6 % (25-40); Mean Corpuscular HGB Conc 34.2 % (30-36); Mean Corpuscular Hemoglobin 29.2 PG (26-34); Mean Corpuscular Volume 85.5 fL (80-100); Monocytes Absolute Auto 600 /uL (0-900); Monocytes Percent Auto 6.8 % (3-14); Neutrophils Absolute Auto 6400 /uL (1500-7000); Platelet Count 180 X10^3/uL (150-400); Red Blood Cell Count 4.46 X10^6/uL (4.5-5.9); Red Cell Distribution Width 14.6 % (11.6-14.8); White Blood Cell Count 9.1 X10^3/uL (4.5-11.0)
[2020-08-13 17:22] LABS: BUN Creatinine Ratio 14.3 (6-22); Blood Urea Nitrogen 15 mg/dL (9-20); Calcium 8.9 mg/dL (8.4-10.2); Carbon Dioxide 21 mmol/L (22-32); Chloride 106 mmol/L (98-107); D Dimer < 200 ng/mL (<230); Estimated Glomerular Filt Rate > 60.0 mL/min (>60); Glucose 223 mg/dL (80-110); HEMOLYSIS < 15 (0-50); Potassium 4.4 mmol/L (3.4-5.1); Sodium 137 mmol/L (137-145)
== END ==
PROVIDERS: PCP Internal Medicine; Visit Provider Internal Medicine
DX: R22.42 Localized swelling, mass and lump, left lower limb (principal); M79.669 Pain in unspecified lower leg
CPT/HCPCS: 80048; 85025; 85379

== ENCOUNTER → 2020-08-14 11:58 | Outpatient (CLI) | payer OTHER, MEDICAID, SELFPAY ==
[2020-07-30 01:24] VITALS: BMI 34.9
--- NOTE | 2020-08-14 12:01 | DI.US.S_ITS ---
PROCEDURE: [facility] VENOUS LOW EXTREM LT INDICATIONS: LEFT LEG PAIN AND SWELLING TECHNIQUE: Real-time imaging, as well as color and pulse Doppler interrogation, were performed of the lower extremity deep veins from the inguinal ligament to the popliteal fossa. COMPARISON: [facility], [facility] VENOUS LOW EXTREM LT, 12/28/2019, 10:40. FINDINGS: The common femoral, femoral and popliteal veins are normally compressible, and free of intraluminal thrombus. Color and pulse Doppler demonstrate normal phasic intraluminal flow. There is normal augmentation response to distal compression maneuver. IMPRESSION: Negative for deep venous thrombosis. Dictated by: Enoch Armando M.D. on 08/14/2020 at 12:09 Approved by: Enoch Armando M.D. on 08/14/2020 at 12:09
== END ==
PROVIDERS: PCP Internal Medicine; Referring Provider Internal Medicine; Visit Provider Internal Medicine
DX: M79.662 Pain in left lower leg (principal); R22.42 Localized swelling, mass and lump, left lower limb
CPT/HCPCS: 93971

== ENCOUNTER → 2020-08-19 12:19 | Outpatient (ROUT) | payer OTHER, MEDICAID, SELFPAY ==
[2020-07-30 01:24] VITALS: BMI 34.9
[2020-08-19 12:36] LABS: Alanine Aminotransferase 19 IU/L (<50); Albumin 3.8 g/dL (3.5-5.0); Albumin Globulin Ratio 1.3 (1.0-2.8); Alkaline Phosphatase 70 U/L (38-126); Aspartate Aminotransferase 29 IU/L (17-59); BUN Creatinine Ratio 13.6 (6-22); Bilirubin Total 0.4 mg/dL (0.2-1.3); Blood Urea Nitrogen 16 mg/dL (9-20); Calcium 9.1 mg/dL (8.4-10.2); Carbon Dioxide 27 mmol/L (22-32); Chloride 103 mmol/L (98-107); Estimated Glomerular Filt Rate > 60.0 mL/min (>60); Glucose 197 mg/dL (80-110); Magnesium 2.2 mg/dL (1.6-2.3); Sodium 136 mmol/L (137-145); Total Protein 6.8 g/dL (6.3-8.2)
[2020-08-19 13:04] LABS: HEMOLYSIS 58 (0-50); Potassium 5.7 mmol/L (3.4-5.1)
== END ==
PROVIDERS: PCP Internal Medicine; Visit Provider Nurse Practitioner Gerontology
DX: E72.3 Disorders of lysine and hydroxylysine metabolism (principal); R25.2 Cramp and spasm
CPT/HCPCS: 80053; 83735

== ENCOUNTER → 2020-08-20 06:59 | Outpatient (ROUT) | payer OTHER, MEDICAID, SELFPAY ==
[2020-07-30 01:24] VITALS: BMI 34.9
[2020-08-20 07:09] LABS: BUN Creatinine Ratio 13.4 (6-22); Blood Urea Nitrogen 15 mg/dL (9-20); Carbon Dioxide 28 mmol/L (22-32); Chloride 104 mmol/L (98-107); Estimated Glomerular Filt Rate > 60.0 mL/min (>60); Glucose 218 mg/dL (80-110); HEMOLYSIS < 15 (0-50); Potassium 4.6 mmol/L (3.4-5.1); Sodium 136 mmol/L (137-145)
== END ==
PROVIDERS: PCP Internal Medicine; Visit Provider Internal Medicine
DX: E87.5 Hyperkalemia (principal)
CPT/HCPCS: 80048

== ENCOUNTER → 2020-11-18 07:37 | Outpatient (ROUT) | payer OTHER, MEDICAID, SELFPAY ==
[2020-11-18 07:56] LABS: Add Manual Diff / Slide Review NO; Basophils Absolute Auto 0 /uL (0-100); Basophils Percent Auto 0.4 % (0-2); Eosinophils Absolute Auto 300 /uL (0-450); Eosinophils Percent Auto 3.8 % (2-4); Hematocrit 41.7 % (41-53); Hemoglobin 13.8 g/dL (13.5-17.5); Lymphocytes Absolute Auto 1200 /uL (1100-4500); Lymphocytes Percent Auto 17.8 % (25-40); Mean Corpuscular HGB Conc 33.2 % (30-36); Mean Corpuscular Hemoglobin 28.7 PG (26-34); Mean Corpuscular Volume 86.5 fL (80-100); Monocytes Absolute Auto 500 /uL (0-900); Monocytes Percent Auto 7.9 % (3-14); Neutrophils Absolute Auto 4700 /uL (1500-7000); Neutrophils Percent Auto 70.1 % (50-75); Platelet Count 182 X10^3/uL (150-400); Red Blood Cell Count 4.82 X10^6/uL (4.5-5.9); Red Cell Distribution Width 14.3 % (11.6-14.8); White Blood Cell Count 6.7 X10^3/uL (4.5-11.0)
[2020-11-18 08:17] LABS: Hemoglobin A1C% w Est Avg Glu 8.4 % (4.0-6.0)
[2020-11-18 08:22] LABS: BUN Creatinine Ratio 13.2 (6-22); Blood Urea Nitrogen 16 mg/dL (9-20); Calcium 8.9 mg/dL (8.4-10.2); Carbon Dioxide 29 mmol/L (22-32); Chloride 102 mmol/L (98-107); Estimated Glomerular Filt Rate > 60.0 mL/min (>60); Glucose 189 mg/dL (80-110); HEMOLYSIS < 15 (0-50); Sodium 136 mmol/L (137-145)
== END ==
PROVIDERS: PCP Internal Medicine; Visit Provider Nurse Practitioner Family
DX: I10 Essential (primary) hypertension (principal); E11.9 Type 2 diabetes mellitus without complications
CPT/HCPCS: 36415; 80048; 83036; 85025

== ENCOUNTER → 2021-10-28 07:48 | Outpatient (ROUT) | payer MEDICARE, MEDICAID, SELFPAY ==
[2021-10-28 08:46] LABS: Add Manual Diff / Slide Review NO; Basophils Absolute Auto 0 /uL (0-100); Basophils Percent Auto 0.6 % (0-2); Eosinophils Absolute Auto 300 /uL (0-450); Eosinophils Percent Auto 3.5 % (2-4); Hematocrit 43.5 % (41-53); Hemoglobin 14.5 g/dL (13.5-17.5); Lymphocytes Absolute Auto 1400 /uL (1100-4500); Lymphocytes Percent Auto 18.3 % (25-40); Mean Corpuscular HGB Conc 33.3 % (30-36); Mean Corpuscular Hemoglobin 28.2 PG (26-34); Mean Corpuscular Volume 84.7 fL (80-100); Monocytes Absolute Auto 600 /uL (0-900); Monocytes Percent Auto 7.7 % (3-14); Neutrophils Absolute Auto 5500 /uL (1500-7000); Neutrophils Percent Auto 69.9 % (50-75); Platelet Count 198 X10^3/uL (150-400); Red Blood Cell Count 5.14 X10^6/uL (4.5-5.9); Red Cell Distribution Width 14.5 % (11.6-14.8); White Blood Cell Count 7.9 X10^3/uL (4.5-11.0)
[2021-10-28 08:56] LABS: Hemoglobin A1C% w Est Avg Glu 8.8 % (4.0-6.0)
[2021-10-28 09:18] LABS: Alanine Aminotransferase 14 IU/L (<50); Albumin 4.1 g/dL (3.5-5.0); Albumin Globulin Ratio 1.3 (1.0-2.8); Alkaline Phosphatase 73 U/L (38-126); Aspartate Aminotransferase 21 IU/L (17-59); BUN Creatinine Ratio 15.2 (6-22); Bilirubin Total 0.5 mg/dL (0.2-1.3); Blood Urea Nitrogen 20 mg/dL (9-20); Calcium 8.2 mg/dL (8.4-10.2); Carbon Dioxide 27 mmol/L (22-32); Chloride 101 mmol/L (98-107); Cholesterol 176 mg/dL (140-199); Estimated Glomerular Filt Rate 60 mL/min (>60); Globulin 3.2 g/dL (1.7-4.1); Glucose 215 mg/dL (80-110); HDL Cholesterol 34 mg/dL (40-60); HEMOLYSIS 44 (0-50); LDL Cholesterol Calculated 95 mg/dL (<100); Potassium 4.8 mmol/L (3.4-5.1); Sodium 136 mmol/L (137-145); Total Protein 7.3 g/dL (6.3-8.2); Triglycerides 234 mg/dL (35-150)
== END ==
PROVIDERS: PCP Internal Medicine; Visit Provider Nurse Practitioner Gerontology
DX: E78.5 Hyperlipidemia, unspecified (principal); E08.9 Diabetes mellitus due to underlying condition without complications
CPT/HCPCS: 36415; 80053; 80061; 83036; 85025

== ENCOUNTER → 2021-11-24 08:31 | Outpatient (ROUT) | payer MEDICARE, MEDICAID, SELFPAY ==
[2021-11-24 09:46] LABS: Cholesterol 161 mg/dL (140-199); HDL Cholesterol 33 mg/dL (40-60); LDL Cholesterol Calculated 92 mg/dL (<100); Triglycerides 181 mg/dL (35-150)
== END ==
PROVIDERS: PCP Internal Medicine; Visit Provider Nurse Practitioner Gerontology
DX: E78.5 Hyperlipidemia, unspecified (principal)
CPT/HCPCS: 36415; 80061

== ENCOUNTER → 2021-12-08 13:19 | Outpatient (ROUT) | payer MEDICARE, MEDICAID, SELFPAY ==
[2021-12-08 14:22] LABS: BUN Creatinine Ratio 13.6 (6-22); Blood Urea Nitrogen 14 mg/dL (9-20); Calcium 8.5 mg/dL (8.4-10.2); Carbon Dioxide 25 mmol/L (22-32); Chloride 102 mmol/L (98-107); Estimated Glomerular Filt Rate > 60 mL/min (>60); Glucose 185 mg/dL (80-110); HEMOLYSIS 23 (0-50); Sodium 138 mmol/L (137-145)
== END ==
PROVIDERS: PCP Internal Medicine; Visit Provider Internal Medicine
DX: N17.9 Acute kidney failure, unspecified (principal)
CPT/HCPCS: 80048

== ENCOUNTER → 2022-01-14 07:52 | Outpatient (CLI) | payer MEDICARE, MEDICAID, SELFPAY | PROVIDERS: PCP Internal Medicine; Referring Provider Registered Nurse; Visit Provider Registered Nurse | DX: R07.9 Chest pain, unspecified (principal); Z82.49 Family history of ischemic heart disease and other diseases of the circulatory system; I51.7 Cardiomegaly | CPT/HCPCS: C8929; Q9957 ==

== ENCOUNTER → 2022-02-16 13:49 | Outpatient (ROUT) | payer MEDICARE, MEDICAID, SELFPAY ==
[2022-02-16 13:59] LABS: BUN Creatinine Ratio 12.9 (6-22); Blood Urea Nitrogen 18 mg/dL (9-20); Carbon Dioxide 27 mmol/L (22-32); Chloride 101 mmol/L (98-107); Estimated Glomerular Filt Rate 56 mL/min (>60); Glucose 154 mg/dL (80-110); HEMOLYSIS 19 (0-50); Potassium 4.9 mmol/L (3.4-5.1); Sodium 140 mmol/L (137-145)
[2022-02-16 14:00] LABS: Add Manual Diff / Slide Review NO; Basophils Absolute Auto 0 /uL (0-100); Basophils Percent Auto 0.5 % (0-2); Eosinophils Absolute Auto 300 /uL (0-450); Eosinophils Percent Auto 3.4 % (2-4); Hematocrit 43.3 % (41-53); Hemoglobin 14.6 g/dL (13.5-17.5); Lymphocytes Absolute Auto 1600 /uL (1100-4500); Lymphocytes Percent Auto 19.3 % (25-40); Mean Corpuscular HGB Conc 33.8 % (30-36); Mean Corpuscular Hemoglobin 28.6 PG (26-34); Mean Corpuscular Volume 84.8 fL (80-100); Monocytes Absolute Auto 600 /uL (0-900); Monocytes Percent Auto 6.6 % (3-14); Neutrophils Absolute Auto 5900 /uL (1500-7000); Neutrophils Percent Auto 70.2 % (50-75); Platelet Count 217 X10^3/uL (150-400); Red Cell Distribution Width 14.4 % (11.6-14.8); White Blood Cell Count 8.4 X10^3/uL (4.5-11.0)
[2022-02-16 14:10] LABS: Hemoglobin A1C% w Est Avg Glu 8.1 % (4.0-6.0)
== END ==
PROVIDERS: PCP Internal Medicine; Visit Provider Internal Medicine
DX: E11.9 Type 2 diabetes mellitus without complications (principal)
CPT/HCPCS: 80048; 83036; 85025

== ENCOUNTER → 2022-02-23 07:43 | Outpatient (ROUT) | payer MEDICARE, MEDICAID, SELFPAY ==
[2022-02-23 08:36] LABS: Hematocrit 43.1 % (41-53); Hemoglobin 14.3 g/dL (13.5-17.5); Mean Corpuscular HGB Conc 33.2 % (30-36); Mean Corpuscular Hemoglobin 28.1 PG (26-34); Mean Corpuscular Volume 84.7 fL (80-100); Platelet Count 225 X10^3/uL (150-400); Red Blood Cell Count 5.09 X10^6/uL (4.5-5.9); Red Cell Distribution Width 14.4 % (11.6-14.8); White Blood Cell Count 7.9 X10^3/uL (4.5-11.0)
[2022-02-23 08:37] LABS: Add Manual Diff / Slide Review NO; Basophils Absolute Auto 0 /uL (0-100); Basophils Percent Auto 0.4 % (0-2); Eosinophils Absolute Auto 300 /uL (0-450); Eosinophils Percent Auto 3.6 % (2-4); Lymphocytes Absolute Auto 1700 /uL (1100-4500); Lymphocytes Percent Auto 21.4 % (25-40); Monocytes Absolute Auto 400 /uL (0-900); Monocytes Percent Auto 5.4 % (3-14); Neutrophils Absolute Auto 5500 /uL (1500-7000); Neutrophils Percent Auto 69.2 % (50-75)
[2022-02-23 08:53] LABS: Hemoglobin A1C% w Est Avg Glu 7.9 % (4.0-6.0)
[2022-02-23 09:13] LABS: BUN Creatinine Ratio 13.6 (6-22); Blood Urea Nitrogen 16 mg/dL (9-20); Carbon Dioxide 34 mmol/L (22-32); Chloride 102 mmol/L (98-107); Estimated Glomerular Filt Rate > 60 mL/min (>60); Glucose 91 mg/dL (80-110); HEMOLYSIS < 15 (0-50); Potassium 4.3 mmol/L (3.4-5.1); Sodium 143 mmol/L (137-145)
== END ==
PROVIDERS: PCP Internal Medicine; Visit Provider Internal Medicine
DX: E11.22 Type 2 diabetes mellitus with diabetic chronic kidney disease (principal); N18.9 Chronic kidney disease, unspecified
CPT/HCPCS: 36415; 80048; 83036; 85025

== ENCOUNTER 2022-05-25 23:45 | Emergency (ER) | payer OTHER, MEDICAID, SELFPAY ==
[2022-05-25 23:49] VITALS: BP 148/67; PULSE 77; RESP 18; TEMP 36.9; O2SAT 96; BMI 37.5
--- NOTE | 2022-05-25 23:51 | ED_ITS ---
HPI - Abdominal Pain General Chief Complaint: Abdominal Pain Stated Complaint: abd pain 2 weeks Time Seen by Provider: 05/25/22 23:46 Source: EMS Mode of arrival: EMS History of Present Illness HPI narrative: 66-year-old male smoker, occasional drinker with history of coronary artery disease, NSTEMI, prior stroke with some expressive aphasia presents with 2 weeks of persistent burning sensation in his throat and upper chest discomfort. He states it has been rather persistent and annoying and is absent of any obvious provocation, palliation or radiation. He admits that it was too much to tolerate tonight. He denies any shortness of breath, nausea, vomiting or diarrhea. He denies any increasing fatigue or unexplained diaphoresis. He denies any medication or dietary change. He states it feels nothing like his prior cardiac episodes. Related Data Home Medications Medication Instructions Recorded Confirmed acetaminophen 325 mg tablet 650 mg PO PRN PRN pain/fever 02/06/18 07/29/20 aspirin 81 mg tablet,delayed 81 mg PO DAILY 02/06/18 07/29/20 release atorvastatin 40 mg tablet 40 mg PO DAILY 02/06/18 07/29/20 buspirone 10 mg tablet 10 mg PO BID 02/06/18 07/29/20 clopidogrel 75 mg tablet (Plavix) 75 mg PO DAILY 02/06/18 07/29/20 nitroglycerin 0.4 mg sublingual 1 tab sublingual PRN PRN Chest Pain 02/06/18 07/29/20 tablet (Nitrostat) sennosides 8.6 mg tablet (senna) 1 tab PO BID 02/06/18 07/29/20 trazodone 50 mg tablet 50 mg PO BEDTIME 02/06/18 07/29/20 Allergies Allergy/AdvReac Type Severity Reaction Status Date / Time No Known Drug Allergies Allergy Verified 05/25/22 23:51 Review of Systems Review of Systems Narrative: GENERAL: See HPI HEENT: See HPI RESPIRATORY: Denies dyspnea, cough, wheezing, hemoptysis, sputum. CARDIOVASCULAR: Denies chest pain, palpitations, orthopnea, edema, GASTROINTESTINAL: See HPI : Denies dysuria, frequency, incontinence, hematuria, urinary retention. MUSCULOSKELETAL: denies weakness, joint pain, or bony pain SKIN: Denies rash, skin lesions, or other NEUROLOGIC: Denies weakness, headache, numbness, change in speech, confusion, seizures, incoordination. PSYCHIATRIC: No concerning psychosocial issues. 12 point review of systems is negative except for those stated above Patient History Medical History (Updated 05/26/22 @ 00:04 by Osbaldo Martinez DO) Coronary artery disease Diabetes Hyperlipidemia Hypertension Surgical History No pertinent past surgical history Social History household members: none Smoking Status: Current every day smoker alcohol intake: current Smoking Status: Current every day smoker alcohol intake frequency: 0-2 drinks per day Substance Use Type: does not use Exam Narrative Exam Narrative: GENERAL: [66] year old patient appears stated age. Well-developed patient, in mild distress. HEAD: Atraumatic. Normocephalic. EYES: Pupils equal round and reactive. Extraocular motions intact. No scleral icterus. No injection or drainage. ENT: Nose without bleeding, purulent drainage. Throat without erythema, tonsillar hypertrophy or exudate. Airway patent. NECK: Trachea midline. Non tender CARDIOVASCULAR: Regular rate and rhythm without murmurs, gallops, or rubs. RESPIRATORY: Clear to auscultation. Breath sounds equal bilaterally. No wheezes, rales, or rhonchi. GASTROINTESTINAL: Abdomen soft, non-tender, nondistended. EXTREMITIES: No edema or joint tenderness. BACK: Nontender without deformity or crepitance. No flank tenderness. NEURO: AOx3. SKIN: No rash or erythema of visible areas Initial Vital Signs Initial Vital Signs: Vital Signs Temperature 98.4 F 05/25/22 23:49 Pulse Rate 77 05/25/22 23:49 Respiratory Rate 18 05/25/22 23:49 Blood Pressure 148/67 H 05/25/22 23:49 Pulse Oximetry 96 05/25/22 23:49 Oxygen Delivery Method 05/25/22 23:49 Scores HEART Score Heart Score history: Moderately Suspicious Heart Score EKG: Significant ST depression Heart Score Age: > or = 65 years old Heart Score risk factors: > 3 risk factors or hx of atherosclerotic disease Course Orders Ordered: ED Orders 05/25/22 23:47 C-Reactive Protein Quant Stat Complete Blood Count AUTO DIFF Stat Comprehensive Metabolic Panel Stat Lipase Stat Magnesium Stat NT-proBNP (BNP-Adult 18+) Stat Prothrombin Time INR Stat Troponin & CK Cardiac Panel Stat 05/25/22 23:51 XR acute abdomen series Stat Throat Culture Stat EKG-12 Lead Stat 05/26/22 00:15 Partial Thromboplastin Time Q6H 05/26/22 06:15 Partial Thromboplastin Time Q6H 05/26/22 12:15 Partial Thromboplastin Time Q6H 05/26/22 18:15 Partial Thromboplastin Time Q6H Sodium Chloride (Normal Saline 0.9%) 1,000 mls @ 1,000 mls/hr IV BOLUS ONE Stop: 05/26/22 00:45 Last Admin: 05/25/22 23:58 Dose: 1,000 mls/hr Heparin Sodium/Dextrose (Heparin Drip) 25,000 unit in 500 mls @ 20 mls/hr IV CONT MERCEDES; Protocol Last Admin: 05/26/22 00:10 Dose: 1,000 units/hr, 20 mls/hr Nitroglycerin (Nitroglycerin 0.4 Mg Sl Tab) 0.4 mg SL [id number] PRN PRN Reason: Chest Pain Last Admin: 05/26/22 00:08 Dose: 0.4 mg Discontinued Medications Aspirin (Aspirin 81 Mg Chew Tab) 324 mg PO NOW ONE Stop: 05/26/22 00:04 Last Admin: 05/26/22 00:07 Dose: 324 mg Al Hydrox/Mg Hydrox/Simethicone 20 ml/ Lidocaine HCl 15 ml 0 ml PO NOW ONE Stop: 05/25/22 23:47 Last Admin: 05/25/22 23:58 Dose: 35 ml Heparin Sodium (Porcine) (Heparin 5,000 Unit/Ml Vial) 5,000 unit IV NOW ONE Stop: 05/26/22 00:04 Last Admin: 05/26/22 00:10 Dose: 5,000 unit Metoprolol Tartrate (Metoprolol Tartrate 5 Mg/5 Ml Inj) 5 mg IV NOW ONE Stop: 05/26/22 00:07 Pantoprazole Sodium (Pantoprazole 40 Mg Vial) 40 mg IV NOW ONE Stop: 05/25/22 23:47 Last Admin: 05/25/22 23:58 Dose: 40 mg Consultations Consultation #1: discussed with Dr. Mendoza (ED at [facility]) will accept and activate STEMI (significant change from prior) Vital Signs Vital signs: Vital Signs - 8 hr 05/25/22 23:49 05/26/22 00:08 Temperature 98.4 F Pulse Rate 77 76 Respiratory Rate 18 Blood Pressure 148/67 H 148/67 H Pulse Oximetry 96 Oxygen Delivery Method Room Air MDM - Abdominal Pain Lab Data 05/26/22 00:04 05/26/22 00:04 ECG Data Interpretation: [2359] EKG is normal sinus rhythm rate [ 71] notable ST elevations with minimal Q-wave in 3 and AVF with reciprocal change. STEMI activated MDM Narrative Medical decision making narrative: 66-year-old male smoker with history of coronary artery disease presents with burning in his upper chest and radiation into his throat, off and on for at least the last few days but significantly worse today. No obvious provocation, palliation. Minimal associated symptoms, patient is a poor historian at baseline. Initial EKG notes significant ST elevations in inferior leads with reciprocal change, STEMI protocol activated, EMS activated, receiving physician at [facility] (Dr. Mendoza) happy to accept. Second line placed, full-dose aspirin, nitro, metoprolol 5 mg IV, heparin ordered. COVID swab obtained Discharge Plan Departure Patient Disposition: [facility] Clinical Impression: ST elevation (STEMI) myocardial infarction Prescriptions: No Action atorvastatin 40 mg Tablet 40 mg PO DAILY sennosides [senna] 8.6 mg Tablet 1 tab PO BID acetaminophen 325 mg Tablet 650 mg PO PRN PRN (Reason: pain/fever) trazodone 50 mg Tablet 50 mg PO BEDTIME clopidogrel [Plavix] 75 mg Tablet 75 mg PO DAILY aspirin 81 mg Tablet,Delayed Release (Dr/Ec) 81 mg PO DAILY buspirone 10 mg Tablet 10 mg PO BID nitroglycerin [Nitrostat] 0.4 mg Tablet, Sublingual 1 tab Sublingual PRN PRN (Reason: Chest Pain) Referrals: Valerie Buck MD [Primary Care Provider] -
[2022-05-25] MEDS: PANTOPRAZOLE 40 MG VIAL IV (23:58)
[2022-05-25] MEDS: SODIUM CHLORIDE 0.9% 1,000 ML 1000 ML IV (23:58)
[2022-05-25] MEDS: MAG HYDROX/ALUMINUM/SIMETH SUS 20 ML, LIDOCAINE VISCOUS 2% 15 ML PO (23:58)
[2022-05-26] MEDS: ASPIRIN 81 MG CHEW TAB 324 MG PO (00:07)
[2022-05-26 00:08] VITALS: BP 148/67; PULSE 76
[2022-05-26] MEDS: NITROGLYCERIN 0.4 MG SL TAB SL ×3 (00:08→00:19)
[2022-05-26] MEDS: HEPARIN 5,000 UNIT/ML VIAL 5000 UNIT IV (00:10)
[2022-05-26] MEDS: HEPARIN DRIP 25,000 UNIT/500 ML IV.SOLN 20 UNIT IV (00:10)
[2022-05-26] MEDS: METOPROLOL TARTRATE 5 MG/5 ML INJ IV (00:13)
[2022-05-26 00:14] VITALS: BP 123/59; PULSE 72
[2022-05-26 00:15] VITALS: BP 122/55; PULSE 72; RESP 13; O2SAT 94
[2022-05-26 00:16] LABS: Add Manual Diff / Slide Review NO; Basophils Absolute Auto 0 /uL (0-100); Basophils Percent Auto 0.4 % (0-2); Eosinophils Absolute Auto 300 /uL (0-450); Eosinophils Percent Auto 3.2 % (2-4); Hematocrit 38.6 % (41-53); Hemoglobin 12.6 g/dL (13.5-17.5); Lymphocytes Absolute Auto 1100 /uL (1100-4500); Lymphocytes Percent Auto 11.2 % (25-40); Mean Corpuscular HGB Conc 32.8 % (30-36); Mean Corpuscular Hemoglobin 27.6 PG (26-34); Mean Corpuscular Volume 84.2 fL (80-100); Monocytes Absolute Auto 600 /uL (0-900); Monocytes Percent Auto 6.2 % (3-14); Neutrophils Absolute Auto 7600 /uL (1500-7000); Platelet Count 234 X10^3/uL (150-400); Prothrombin Time 10.9 SECONDS (10.1-12.7); Red Blood Cell Count 4.59 X10^6/uL (4.5-5.9); Red Cell Distribution Width 14.9 % (11.6-14.8); White Blood Cell Count 9.6 X10^3/uL (4.5-11.0)
[2022-05-26 00:19] VITALS: BP 128/59; PULSE 72; PULSE 73; RESP 17; O2SAT 92
[2022-05-26 00:22] LABS: Alanine Aminotransferase 19 IU/L (<50); Albumin 3.8 g/dL (3.5-5.0); Albumin Globulin Ratio 1.2 (1.0-2.8); Alkaline Phosphatase 95 U/L (38-126); Aspartate Aminotransferase 23 IU/L (17-59); BUN Creatinine Ratio 15.9 (6-22); Bilirubin Total 0.3 mg/dL (0.2-1.3); Blood Urea Nitrogen 23 mg/dL (9-20); C-Reactive Protein Quant 2.9 mg/dL (<1.0); Calcium 8.3 mg/dL (8.4-10.2); Carbon Dioxide 25 mmol/L (22-32); Chloride 100 mmol/L (98-107); Creatine Kinase 118 U/L (55-170); Estimated Glomerular Filt Rate 53 mL/min (>60); Globulin 3.3 g/dL (1.7-4.1); Glucose 276 mg/dL (80-110); HEMOLYSIS < 15 (0-50); Lipase 184 U/L (23-300); Magnesium 2.7 mg/dL (1.6-2.3); Potassium 4.9 mmol/L (3.4-5.1); Sodium 134 mmol/L (137-145); Total Protein 7.1 g/dL (6.3-8.2)
[2022-05-26 00:31] LABS: NT-proBNP (BNP-Adult 18+) 869 pg/mL (<125)
[2022-05-26 00:33] LABS: COVID19 -Nasal RAPID Negative (Negative)
[2022-05-26 00:35] LABS: CKMB % Relative Index 3.7 % (1.5-5.0); Creatine Kinase MB 4.33 ng/mL (<2.37)
[2022-05-26 00:37] LABS: Troponin I 0.863 ng/mL (0.01-0.034)
[2022-05-26 03:21] LABS: PTT Partial Thromboplastin Tim 31 SECONDS (26-36)
== END 2022-05-26 00:40 | disposition short-term general hospital (02) ==
PROVIDERS: Emergency Provider Emergency Medicine; PCP Internal Medicine
DX: I21.3 ST elevation (STEMI) myocardial infarction of unspecified site (principal); Z20.822 Contact with and (suspected) exposure to COVID-19
CPT/HCPCS: 36415; 80053; 82550; 82553; 83690; 83735; 83880; 84484; 85025; 85610; 85730; 86140; 87635; 93005; 96365; 96375; 99285; C9803; C9113; J1644

== ENCOUNTER → 2022-06-08 07:30 | Outpatient (ROUT) | payer OTHER, MEDICAID, SELFPAY ==
[2022-06-08 07:44] LABS: Add Manual Diff / Slide Review NO; Basophils Absolute Auto 0 /uL (0-100); Basophils Percent Auto 0.5 % (0-2); Eosinophils Absolute Auto 200 /uL (0-450); Eosinophils Percent Auto 1.7 % (2-4); Hematocrit 41.2 % (41-53); Hemoglobin 13.8 g/dL (13.5-17.5); Lymphocytes Absolute Auto 1700 /uL (1100-4500); Lymphocytes Percent Auto 17.4 % (25-40); Mean Corpuscular HGB Conc 33.6 % (30-36); Mean Corpuscular Hemoglobin 27.5 PG (26-34); Mean Corpuscular Volume 81.8 fL (80-100); Monocytes Absolute Auto 700 /uL (0-900); Monocytes Percent Auto 6.8 % (3-14); Neutrophils Absolute Auto 7200 /uL (1500-7000); Neutrophils Percent Auto 73.6 % (50-75); Platelet Count 282 X10^3/uL (150-400); Red Blood Cell Count 5.03 X10^6/uL (4.5-5.9); Red Cell Distribution Width 14.5 % (11.6-14.8); White Blood Cell Count 9.7 X10^3/uL (4.5-11.0)
[2022-06-08 07:51] LABS: BUN Creatinine Ratio 19.6 (6-22); Blood Urea Nitrogen 22 mg/dL (9-20); Calcium 8.8 mg/dL (8.4-10.2); Carbon Dioxide 33 mmol/L (22-32); Chloride 95 mmol/L (98-107); Estimated Glomerular Filt Rate > 60 mL/min (>60); Glucose 241 mg/dL (80-110); HEMOLYSIS < 15 (0-50); Potassium 4.1 mmol/L (3.4-5.1); Sodium 135 mmol/L (137-145)
[2022-06-08 08:23] LABS: Hemoglobin A1C% w Est Avg Glu 8.1 % (4.0-6.0)
== END ==
PROVIDERS: PCP Internal Medicine; Visit Provider Nurse Practitioner Gerontology
DX: E11.9 Type 2 diabetes mellitus without complications (principal)
CPT/HCPCS: 36415; 80048; 83036; 85025

== ENCOUNTER → 2022-06-21 10:46 | Outpatient (CLI) | payer OTHER, MEDICAID, SELFPAY ==
--- NOTE | 2022-06-21 | DI.RAD.S_ITS ---
PROCEDURE: XR CHEST 2V INDICATIONS: chest pressure TECHNIQUE: 2 views of the chest were acquired. COMPARISON: [facility], , XR CHEST 2V, 02/07/2020, 14:28. FINDINGS: Surgical changes and devices: None. Lungs and pleura: Lungs are clear. No pleural effusions or pneumothorax. Mediastinum: Mediastinal contours are normal. Heart size is normal. Bones and chest wall: No suspicious bony abnormalities. Soft tissues appear unremarkable. IMPRESSION: No acute cardiopulmonary pathology. Dictated by: Carlos Dick M.D. on 06/21/2022 at 12:12 Approved by: Carlos Dick M.D. on 06/21/2022 at 12:17
== END ==
PROVIDERS: PCP Internal Medicine; Referring Provider Internal Medicine; Visit Provider Internal Medicine
DX: R07.89 Other chest pain (principal)
CPT/HCPCS: 71046; 93005

== ENCOUNTER → 2022-06-25 16:57 | Outpatient (ROUT) | payer OTHER, MEDICAID, SELFPAY ==
[2022-06-25 17:19] LABS: BUN Creatinine Ratio 13.6 (6-22); Blood Urea Nitrogen 18 mg/dL (9-20); Calcium 8.4 mg/dL (8.4-10.2); Carbon Dioxide 27 mmol/L (22-32); Chloride 98 mmol/L (98-107); Estimated Glomerular Filt Rate 59 mL/min (>60); Glucose 210 mg/dL (80-110); HEMOLYSIS < 15 (0-50); Potassium 4.2 mmol/L (3.4-5.1); Sodium 134 mmol/L (137-145)
== END ==
PROVIDERS: PCP Internal Medicine; Visit Provider Nurse Practitioner Family
DX: R41.9 Unspecified symptoms and signs involving cognitive functions and awareness (principal)
CPT/HCPCS: 80048

== ENCOUNTER → 2022-07-01 15:53 | Outpatient (ROUT) | payer OTHER, MEDICAID, SELFPAY ==
[2022-07-01 16:00] LABS: Add Manual Diff / Slide Review NO; Basophils Absolute Auto 0 /uL (0-100); Basophils Percent Auto 0.4 % (0-2); Eosinophils Absolute Auto 300 /uL (0-450); Eosinophils Percent Auto 3.1 % (2-4); Lymphocytes Absolute Auto 1500 /uL (1100-4500); Lymphocytes Percent Auto 18.1 % (25-40); Mean Corpuscular HGB Conc 32.4 % (30-36); Mean Corpuscular Hemoglobin 26.7 PG (26-34); Mean Corpuscular Volume 82.5 fL (80-100); Monocytes Absolute Auto 500 /uL (0-900); Monocytes Percent Auto 6.4 % (3-14); Neutrophils Absolute Auto 5900 /uL (1500-7000); Platelet Count 230 X10^3/uL (150-400); Red Blood Cell Count 4.85 X10^6/uL (4.5-5.9); Red Cell Distribution Width 14.4 % (11.6-14.8); White Blood Cell Count 8.2 X10^3/uL (4.5-11.0)
[2022-07-01 16:15] LABS: Alanine Aminotransferase 19 IU/L (<50); Albumin 3.7 g/dL (3.5-5.0); Albumin Globulin Ratio 1.2 (1.0-2.8); Alkaline Phosphatase 103 U/L (38-126); Aspartate Aminotransferase 19 IU/L (17-59); BUN Creatinine Ratio 11.7 (6-22); Bilirubin Total 0.4 mg/dL (0.2-1.3); Blood Urea Nitrogen 15 mg/dL (9-20); Calcium 8.4 mg/dL (8.4-10.2); Carbon Dioxide 26 mmol/L (22-32); Chloride 98 mmol/L (98-107); Estimated Glomerular Filt Rate > 60 mL/min (>60); Glucose 253 mg/dL (80-110); HEMOLYSIS < 15 (0-50); Potassium 4.2 mmol/L (3.4-5.1); Sodium 135 mmol/L (137-145); Total Protein 6.7 g/dL (6.3-8.2)
[2022-07-01 16:24] LABS: NT-proBNP (BNP-Adult 18+) 833 pg/mL (<125)
[2022-07-01 16:46] LABS: Thyroid Stimulating Hormone 1.86 uIU/mL (0.47-4.68)
== END ==
PROVIDERS: PCP Internal Medicine; Visit Provider Registered Nurse
DX: R53.83 Other fatigue (principal); R60.9 Edema, unspecified; N18.9 Chronic kidney disease, unspecified
CPT/HCPCS: 36415; 80053; 83880; 84443; 85025

== ENCOUNTER → 2022-11-02 08:19 | Outpatient (ROUT) | payer OTHER, MEDICAID, SELFPAY ==
[2022-11-02 08:53] LABS: Add Manual Diff / Slide Review NO; Basophils Absolute Auto 0 /uL (0-100); Basophils Percent Auto 0.4 % (0-2); Eosinophils Absolute Auto 300 /uL (0-450); Eosinophils Percent Auto 3.5 % (2-4); Hematocrit 41.7 % (41-53); Lymphocytes Absolute Auto 1300 /uL (1100-4500); Lymphocytes Percent Auto 18.3 % (25-40); Mean Corpuscular HGB Conc 33.5 % (30-36); Mean Corpuscular Hemoglobin 27.3 PG (26-34); Mean Corpuscular Volume 81.5 fL (80-100); Monocytes Absolute Auto 500 /uL (0-900); Monocytes Percent Auto 7.1 % (3-14); Neutrophils Absolute Auto 5200 /uL (1500-7000); Neutrophils Percent Auto 70.7 % (50-75); Platelet Count 188 X10^3/uL (150-400); Red Blood Cell Count 5.12 X10^6/uL (4.5-5.9); Red Cell Distribution Width 14.7 % (11.6-14.8); White Blood Cell Count 7.3 X10^3/uL (4.5-11.0)
[2022-11-02 09:18] LABS: BUN Creatinine Ratio 20.9 (6-22); Blood Urea Nitrogen 27 mg/dL (9-20); Carbon Dioxide 30 mmol/L (22-32); Chloride 99 mmol/L (98-107); Estimated Glomerular Filt Rate > 60 mL/min (>60); Glucose 308 mg/dL (80-110); HEMOLYSIS < 15 (0-50); Potassium 4.5 mmol/L (3.4-5.1); Sodium 135 mmol/L (137-145)
[2022-11-03 05:30] LABS: Labcorp Hemoglobin (Hb) A1c 11.2 % (4.8-5.6)
== END ==
PROVIDERS: PCP Internal Medicine; Visit Provider Nurse Practitioner Gerontology
DX: E11.9 Type 2 diabetes mellitus without complications (principal)
CPT/HCPCS: 36415; 80048; 83036; 85025

== ENCOUNTER 2023-09-03 17:13 | Emergency (ER) | payer OTHER, MEDICAID, SELFPAY ==
--- NOTE | 2023-09-03 17:24 | ED.CPR ---
HPI - CPR General Stated Complaint: CPR Time Seen by Provider: 09/03/23 17:24 Source: patient, EMS, RN notes reviewed and old records reviewed Mode of arrival: EMS History of Present Illness HPI narrative: 66-year-old smoker, history of coronary artery disease, prior NSTEMI NSTEMI prior stroke with expressive aphasia who presents in cardiac arrest with EMS was found down outside [place] assisted. Patient had no pulses CPR was started by RN at the facility. EMS arrived they did achieve ROSC about 5-10 minutes and was planning to take to [facility] and then lost pulses again. Patient was intubated in the field. He initially had more of a wide complex rhythm, was sort of a slow V-tach and then lost pulses but with wide complex rhythm. Patient received 7 or 8 mg of epinephrine, calcium, magnesium, amiodarone 300 mg followed by 150 mg, and multiple shocks throughout course of events. They were not able to regain pulses and patient was transported here. Patient upon arrival had been without pulses for an additional 10-15 minutes. EMS has been dispatched proximally an hour before arrival here and had approximately 20 minutes of down time. Related Data Home Medications Medication Instructions Recorded Confirmed acetaminophen 325 mg tablet 650 mg PO PRN PRN pain/fever 02/06/18 07/29/20 aspirin 81 mg tablet,delayed 81 mg PO DAILY 02/06/18 07/29/20 release atorvastatin 40 mg tablet 40 mg PO DAILY 02/06/18 07/29/20 buspirone 10 mg tablet 10 mg PO BID 02/06/18 07/29/20 clopidogrel 75 mg tablet (Plavix) 75 mg PO DAILY 02/06/18 07/29/20 nitroglycerin 0.4 mg sublingual 1 tab sublingual PRN PRN Chest Pain 02/06/18 07/29/20 tablet (Nitrostat) sennosides 8.6 mg tablet (senna) 1 tab PO BID 02/06/18 07/29/20 trazodone 50 mg tablet 50 mg PO BEDTIME 02/06/18 07/29/20 Allergies Allergy/AdvReac Type Severity Reaction Status Date / Time metformin Allergy Verified 09/03/23 17:31 sulfamethoxazole Allergy Verified 09/03/23 17:31 [From Bactrim] trimethoprim [From Bactrim] Allergy Verified 09/03/23 17:31 Review of Systems Review of Systems ROS Unobtainable: Unobtainable due to mental status/LOC Patient History Medical History (Updated 09/03/23 @ 17:37 by Nicole Bang DO) Coronary artery disease Diabetes Hypertension Hyperlipidemia Surgical History No pertinent past surgical history Social History household members: none Smoking Status: Current every day smoker alcohol intake: current Smoking Status: Current every day smoker alcohol intake frequency: 0-2 drinks per day Substance Use Type: does not use Exam Narrative Exam Narrative: GENERAL: Unresponsive male, pale CPR in progress. Intubated. HEENT: Head normocephalic, atraumatic, EOMI, pupils reactive, face symmetric, moist mucous membranes NECK: Supple, full range of motion CARDIOVASCULAR: Regular rate and rhythm without murmurs, rubs or gallops. RESPIRATORY: Breath sounds equal bilaterally with BVM. ABDOMEN: Soft, Non-distended. : No CVA tenderness, patient does have some bruising in the inguinal creases. EXTREMITIES: No edema, no pulses NEUROLOGICAL: GCS 3 SKIN: Pale, warm, dry without petecchiae MDM - Cardiac Arrest/CPR MDM Narrative Medical decision making narrative: Upon arrival ET tube was verified has good breath sounds bilaterally, bagging easily with good chest rise. Patient had received multiple doses of medications including calcium, magnesium, amiodarone, epinephrine for 7-8 rounds with multiple defibrillations. Upon arrival initial rhythm asystole, patient received an additional 2 mg of epinephrine with continued CPR. Did give 100 mg dose of lidocaine. Rhythm continued to be in asystole. Bedside ultrasound showed no cardiac contractility and resuscitation efforts were after approximately an hour of CPR with one episode of ROSC. Time of was 1723. Rhythm strips from EMS were reviewed showed initial very wide complex EKG did have very deep Q-waves in lateral leads with some elevation although sinusitis appearing. Subsequent telemetry strips appear to show wide complex tachycardia that then developed VFib and then was in asystole here in the department. Plugger Worker was contacted Nursing contacting [facility] [employer]. Contacted family for Call to Dr. Max patients primary care physician. She is familiar with the patient aware of today's events. States he has a known cardiac history does have mild renal disease but no end-stage renal disease. She is suspect likely cardiac source. Attempted to reach patients family but do not have correct contact information. Discharge Plan Departure Patient Disposition: Clinical Impression: Cardiac arrest Date/Time: 09/03/23 17:23
--- NOTE | 2023-09-03 18:36 | PC.NURSE ---
Patient arrived at the ambulance bay at 17:08 with CPR in progress by EMS. Patient taken to the Emergency department room 1 where patient was transferred to [facility] at 17:12. Patient arrives with an IO in right nichols and 18G IV in left AC. 1L normal saline running in left AC upon arrival. EMS called report at 17:02. Code blue paged over system at 17:04. Code ran by provider. Please see medication notes sheet for medication administrations. Please defer to provider note for details of the code. Time of called by provider at 17:23.
--- NOTE | 2023-09-03 18:49 | PC.NURSE ---
Addendum entered by Gaurav Santos R.N. 09/03/23 19:03: Provider attempted to call both phone numbers on face sheet from [facility] and both numbers are currently disconnected. Original Note: Provider attempted to call sister at phone number listed in this electronic medical record [phone]. The person at this number states that they are not the intended person. We received a face sheet from [employer] with a different number for the sister. Provider called and left message for return call at [phone]. The person from that phone number called back to say that they weren't the patient sister.
--- NOTE | 2023-09-03 19:05 | PC.NURSE ---
This RN called Donor inquiry information line for non-ventilated patients at and talked to Rochelle. Rochelle gave this RN case number of [id number]. At the time of this call Rochelle stated patient is potential candidate. Provider informed. This RN called back at 190 and talked to Eva and informed her that this RN had obtained additional medical conditions that were unknown in first report. This RN also informed Eva that we have no known next of kin phone number. Eva informed this RN that she would page out the coordinator with this additional information. This RN has had no contact with the coordinator at this time.
--- NOTE | 2023-09-03 19:14 | PC.NURSE ---
This RN called [facility] at [phone]. This RN talked to Kathie Potter at 18:02 and answered all the person information that was requested. At 18:54 Kathie Potter called back and informed this RN that they were not taking the case and gave this RN a no jurisdiction assumed number of [id number]. This RN was informed detective captain reviewed case with Kathie Potter. picture framer name is Michelle Crabtree.
--- NOTE | 2023-09-03 19:25 | PC.NURSE ---
This RN called [facility] to ask for any additional potential next of kin phone numbers and any potential home arrangement numbers at 1900. This RN received a return call from YUKI Pollard at 17:02. LINE DRIVER said they would return phone call with any additional information as soon as possible. This same LINE DRIVER returned call at 17:16 and informed this RN that patient never selected home. They reviewed admission information for this patient and could not find any additional numbers for next of kin for this patient.
--- NOTE | 2023-09-03 19:34 | PC.NURSE ---
Patient arrived with no material possessions besides a pair of reading glasses with black rims. This RN placed a label on the glasses and placed them in a biohazard bag and placed at patient bedside.
--- NOTE | 2023-09-03 19:57 | PC.NURSE ---
This RN received a return call from [facility] and talked to destination imagination coordinator Wendy. Case number remains [id number]. This RN reviewed all information with destination imagination coordinator and confirmed that patient is not a candidate for organ or tissue donation due to there being no next of kin information to notify. This RN confirmed from destination imagination coordinator that patient could go to the home.
--- NOTE | 2023-09-03 20:06 | PC.NURSE ---
This RN called Marcos at [facility] at [phone] for intake of this patient. This RN informed [facility] of patient location within the hospital and return phone number for additional questions. He said that he would call back for formal acceptance.
--- NOTE | 2023-09-03 20:20 | PC.NURSE ---
This RN informed charge of all information and awaiting a return call from [facility]. This RN placed patient stickers on all code blue documentation, in field rhythm strips, medication administration sheets from assisted living and assisted living face sheet.
== END 2023-09-03 20:28 | disposition expired ==
PROVIDERS: Emergency Provider Emergency Medicine; PCP Internal Medicine
DX: I46.9 Cardiac arrest, cause unspecified (principal); I25.2 Old myocardial infarction
CPT/HCPCS: 92950; 99282; 99285; J0171